=== PATIENT | female | born 1975 | race Caucasian/White ===

== ENCOUNTER → 2016-10-06 | Emergency (ER) | payer SELFPAY ==
[~2016-10-06] VITALS: Ht 175.3 cm; Wt 79.4 kg
[~2016-10-06] MED LIST: AMOXIL500 M1 PO; AZITHROMYCIN250 MG PO; CIPROFLOXACIN500 MG PO; DILAUDID2 MG PO; FLEXERIL10 MG PO; LUPRON DEPOT3.75 MG IM; MEDROL 4MG. DOSE4 MG PO; NAPROXEN SODIU500 MG PO; NOMEDS; PERCOCET 10 MG1 EACH PO; SEROQUEL XR150 MG PO; ZITHROMAX Z PA250 MG PO
--- NOTE | 2016-10-06 11:19 | Emergency Room Report ---
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 N Clinical Suspician of Infection? N Mental Status: 1 - Regular (Normal Baseline) Sepsis Risk:Low Sepsis Risk Have you (or family members/close friends) recently traveled outside the [place]? N If Yes, where/when: Have you had exposure to infectious disease within the past month? N TB? Other? 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 Has hx of chronic low back pain in the past. She last took Tylenol yesterday and did not take any medications today, but tolerates Ibuprofen. No fever or urinary sx. Pain is positional and radiates down both legs. Her pain is constant and localized, not colicky, not associated with abdominal pain, fever, cough, SOB, vomiting, or any blood from above or below. She ambulated easily to the ER stretcher per the RN who triaged her. No neurological sx and specifically,no loss of bowel or bladder function. ALLERGIES Coded Allergies: MDX - Aspirin (Aspirin) (Intermediate, I-HIVES 06/18/14) Converted from Generic Allergy: Aspirin MDX - Codeine (Codeine) (Intermediate, IHIVES 06/18/14) Converted from Ingredient Allergy: Codeine MDX - Penicillin (Penicillin) (Inter[facility], [facility] 06/18[facility]14) Converted from Drug Class Allergy: Penicillins MDX - Terbutaline (From Terbutaline Sulfate) (Intermediate, IHIVES 06/18/14) Converted from Generic Allergy: Terbutaline Sulfate History Medical History General Angina: Yes [place]: Yes Hypertension? No Hyperlipidemia? No CHF? No COPD? No Asthma? Yes Hernia? No CVA? No Seizures? No Diabetes? No UTI? Yes Stones? No GB Disease: No Hepatitis? No Cataracts? No Glaucoma? No MRSA? No TB? No Cancer? 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 Family History Family Hx Diabetes Yes CAD Yes Hypertension Yes Hyperlipidemia Yes Cancer Yes TB No Social History Smoking Hx Smoker: Current Every Day Smoker Tobacco: Yes Type Cigarettes Packs/day 1 1/2 - 2 Packs Alcohol Alcohol: No Review of Systems All Other Systems Reviewed and Negative Musculoskeletal see HPI Physical Exam Vital Signs Vital Signs Date Time Temp Pulse Resp B/P Pulse O2 O2 Flow FiO2 Ox Delivery Rate 10/06 1043 97.9 88 18 162/97 100 General Appearance normal appearance, WD/WN, no apparent distress Eye Exam - bilateral eye normal exam, bilateral eye PERRL, bilateral eye EOMI Neck normal inspection, non-tender, supple, full range of motion Respiratory Status Yes: trachea midline, chest symmetrical, non tender chest. No: respiratory distress, tender on palpation, use of accessory muscles, pain on inspiration, pain on expiration, productive cough, non productive cough. Lung Sounds bilateral: normal breath sounds, lungs clear. Cardiovascular normal exam, regular rate/rhythm, no peripheral edema, no gallop, no JVD, no murmur, no rub, JVD Gastrointestinal normal bowel sounds, normal exam, soft, no organomegaly, no pulsatile mass, no guarding, no rebound Back normal inspection, no CVA tenderness, no vertebral tenderness, bowel/ bladder continent, gait normal, muscle spasm (trigger point lower lumbar L), strt leg raising(L)-NML, strt leg raising(R)-NML Extremities non-tender, normal range of motion, normal inspection, normal capillary refill, no pedal edema Strength 5 Upper Ext (L), 5 Upper Ext (R), 5 Lower Ext (L), 5 Lower Ext (R) Neurologic alert, normal exam, no motor/sensory deficits, oriented x 3 Glascow Coma Scale Glascow Coma Scale Response Value EYE response: 4 Spontaneously 4 MOTOR response: 6 OBEYS 6 VERBAL response: 5 Oriented & Converses 5 Total 15 Reflexes Reflexes normal Yes DTR 3+ knee (R), 3+ knee (L) Skin intact, normal color, warm/dry, no rash cons.w/shingles Lymphatic no adenopathy Medical Decision Making LABS/Meds/Orders Pt receiving controlled substance in ED? No Results/Orders Current Medication Orders Sig/Markos Start time Last Medication Dose Route Stop Time Status Admin Ketorolac 60 MG ONCE ONE 10/06 1115 AC Tromethamine IM 10/06 1116 Ketorolac 0 .STK-MED ONE 10/06 1112 DC Tromethamine .ROUTE Departure Departure Time of Disposition 1113 Disposition DC Home or Self Care(routine) Clinical Impression Primary Impression: Musculoskeletal back pain Condition STABLE Patient Instructions DI for Low Back Pain Additional Instructions See doctor of choice on list provided, call for appointment, one to two weeks; Rx Naproxen, Rx Flexeril. Discharge Counseling Counseled pt/family regarding diagnosis, test results, medications/RX, home care, follow up needs Prescriptions Current Visit Scripts NAPROXEN (NAPROXEN 500MG TAB) 500 MG PO BIDP PRN spasm #10 TAB Cyclobenzaprine Hcl (Flexeril) 5 MG PO BID PRN spasm #6 TAB ED Critical Care Critical Care No at 1118
--- NOTE | 2016-10-06 11:19 | Emergency Room Report ---
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 N Clinical Suspician of Infection? N Mental Status: 1 - Regular (Normal Baseline) Sepsis Risk:Low Sepsis Risk Have you (or family members/close friends) recently traveled outside the [place]? N If Yes, where/when: Have you had exposure to infectious disease within the past month? N TB? Other? 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 Has hx of chronic low back pain in the past. She last took Tylenol yesterday and did not take any medications today, but tolerates Ibuprofen. No fever or urinary sx. Pain is positional and radiates down both legs. Her pain is constant and localized, not colicky, not associated with abdominal pain, fever, cough, SOB, vomiting, or any blood from above or below. She ambulated easily to the ER stretcher per the RN who triaged her. No neurological sx and specifically,no loss of bowel or bladder function. ALLERGIES Coded Allergies: MDX - Aspirin (Aspirin) (Intermediate, I-HIVES 06/18/14) Converted from Generic Allergy: Aspirin MDX - Codeine (Codeine) (Intermediate, I[facility]ES 06/18/14) Converted from Ingredient Allergy: Codeine MDX - Penicillin (Penicillin) ([facility], [facility] Converted from Drug Class Allergy: Penicillins MDX - Terbutaline (From Terbutaline Sulfate) (Intermediate, I[facility] 06/18/14) Converted from Generic Allergy: Terbutaline Sulfate History Medical History General Angina: Yes [place]: Yes Hypertension? No Hyperlipidemia? No CHF? No COPD? No Asthma? Yes Hernia? No CVA? No Seizures? No Diabetes? No UTI? Yes Stones? No GB Disease: No Hepatitis? No Cataracts? No Glaucoma? No MRSA? No TB? No Cancer? 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 Family History Family Hx Diabetes Yes CAD Yes Hypertension Yes Hyperlipidemia Yes Cancer Yes TB No Social History Smoking Hx Smoker: Current Every Day Smoker Tobacco: Yes Type Cigarettes Packs/day 1 1/2 - 2 Packs Alcohol Alcohol: No Review of Systems All Other Systems Reviewed and Negative Musculoskeletal see HPI Physical Exam Vital Signs Vital Signs Date Time Temp Pulse Resp B/P Pulse O2 O2 Flow FiO2 Ox Delivery Rate 10/06 1043 97.9 88 18 162/97 100 General Appearance normal appearance, WD/WN, no apparent distress Eye Exam - bilateral eye normal exam, bilateral eye PERRL, bilateral eye EOMI Neck normal inspection, non-tender, supple, full range of motion Respiratory Status Yes: trachea midline, chest symmetrical, non tender chest. No: respiratory distress, tender on palpation, use of accessory muscles, pain on inspiration, pain on expiration, productive cough, non productive cough. Lung Sounds bilateral: normal breath sounds, lungs clear. Cardiovascular normal exam, regular rate/rhythm, no peripheral edema, no gallop, no JVD, no murmur, no rub, JVD Gastrointestinal normal bowel sounds, normal exam, soft, no organomegaly, no pulsatile mass, no guarding, no rebound Back normal inspection, no CVA tenderness, no vertebral tenderness, bowel/ bladder continent, gait normal, muscle spasm (trigger point lower lumbar L), strt leg raising(L)-NML, strt leg raising(R)-NML Extremities non-tender, normal range of motion, normal inspection, normal capillary refill, no pedal edema Strength 5 Upper Ext (L), 5 Upper Ext (R), 5 Lower Ext (L), 5 Lower Ext (R) Neurologic alert, normal exam, no motor/sensory deficits, oriented x 3 Glascow Coma Scale Glascow Coma Scale Response Value EYE response: 4 Spontaneously 4 MOTOR response: 6 OBEYS 6 VERBAL response: 5 Oriented & Converses 5 Total 15 Reflexes Reflexes normal Yes DTR 3+ knee (R), 3+ knee (L) Skin intact, normal color, warm/dry, no rash cons.w/shingles Lymphatic no adenopathy Medical Decision Making LABS/Meds/Orders Pt receiving controlled substance in ED? No Results/Orders Current Medication Orders Sig/Markos Start time Last Medication Dose Route Stop Time Status Admin Ketorolac 60 MG ONCE ONE 10/06 1115 AC Tromethamine IM 10/06 1116 Ketorolac 0 .STK-MED ONE 10/06 1112 DC Tromethamine .ROUTE Departure Departure Time of Disposition 1113 Disposition DC Home or Self Care(routine) Clinical Impression Primary Impression: Musculoskeletal back pain Condition STABLE Patient Instructions DI for Low Back Pain Additional Instructions See doctor of choice on list provided, call for appointment, one to two weeks; Rx Naproxen, Rx Flexeril. Discharge Counseling Counseled pt/family regarding diagnosis, test results, medications/RX, home care, follow up needs Prescriptions Current Visit Scripts NAPROXEN (NAPROXEN 500MG TAB) 500 MG PO BIDP PRN spasm #10 TAB Cyclobenzaprine Hcl (Flexeril) 5 MG PO BID PRN spasm #6 TAB ED Critical Care Critical Care No at 1118
[2016-10-06 11:26] VITALS: BP 152/88
--- OUTSIDE RECORDS SUMMARY | 2016-10-06 12:01 | External Medical Summary Rpt ---
Author Author , CLARA Huber CLARA Address Unknown Phone [email or web address] Care Team Providers Care Bi Developer Name Role Phone A Juancarlos QIU MD PSC, A Unavailable Unavailable Juancarlos QIU MD PSC AYARAM, NIKITA, AYARAM, Unavailable Unavailable NIKITA [facility], [facility], Unavailable Unavailable [facility] GHAZAL DONOVAN, Unavailable Unavailable GHAZAL DONOVAN GHAZAL, SEBASTIAN, Unavailable Unavailable GHAZAL, SEBASTIAN [facility], Unavailable [facility]available [facility], Unavailable [facility]available [facility] CELIA RUSSELL, DREW, Unavailable Unavailable DREUX [facility] [place]available [place], [facility] [place] [facility] Un[facility] Un[place] [facility] MILTON SANTIAGO, Unavailable Unavailable MILTON SANTIAGO [facility] Unavailable Unavailable KYLEIGH SANCHEZ, Unavailable Unavailable KYLEIGH SANCHEZ MD, Unavailable Unavailable KASSANDRA KEENE MD Unavailable Unavailable EDE HARPEL DUANE, HARPEL Unavailable Unavailable DUANE HARPEL DUANE, HARPEL Unavailable Unavailable DUANE [facility] Un[facility] Un[facility], [facility] LORA ARINA, Unavailable Unavailable LORA ARINA GUIDO ARINA, Unavailable Unavailable GUIDO ARINA [facility] Unavailable Unavailable [facility], [facility] Unavailable Unavailable [facility], [facility] KILPELA JEA, KILPELA Unavailable Unavailable JEA [facility], Unavailable Unavailable [facility], Unavailable Unavailable [facility] TRINIDAD ISRAEL, TRINIDAD Unavailable Unavailable ISRAEL PAUL GRE, Unavailable Unavailable PAUL GRE [facility], Unavailable Unavailable [facility] Unavailable Unavailable SERVICES, [facility] PAUL SCHAEFFER, Unavailable Unavailable PAUL SCHAEFFER VIKA MAL, VIKA MAL Unavailable Unavailable [facility], Unavailable Unavailable [facility], Unavailable Unavailable [facility] Unavailable Unavailable LAB, [facility], Unavailable Unavailable [facility], Unavailable Unavailable [facility] MARCO ISRAEL, MARCO Unavailable Unavailable ISRAEL MARCO ISRAEL, MARCO Unavailable Unavailable ISRAEL [id number], Unavailable Unavailable [id number] SCHULSTAD SONY, Unavailable Unavailable [facility]UL[facility] SONY [facility], Unavailable Unavailable [facility] POP AVENDAÑO, POP Unavailable Unavailable KATERYNA WEHRMAN III ZEN, Unavailable Unavailable WEHRMAN III HERMES BARRAZA, Unavailable Unavailable HERMES ACEVEDO WRIGHT A Unavailable Unavailable Edgar QIU WRIGHT, Unavailable Unavailable Edgar Bauer Purpose Continuity of Care Document - 03-11-2007 through 2016 Problems Code Diagnosis DOS Provider Status 11774 HORDEOLUM 08-10-2014 Edgar QIU EXTERNUM PSC 6823 CELLULITIS 06-18-2014 [facility] ARM AND FOREARM 9134 ELB 06-18-2014 [facility] INSECT INC BITE NONVENOMOUS W/O INF 1110 PITYRIASIS 05-30-2014 Edgar QIU VERSICOЕКАТЕРИНА ACOSTA PSC 7242 LUMBAGO 05-30-2014 Edgar QIU MD PSC V154 PERS HX 04-09-2014 [facility] AL TRAUMA PRS [facility] 4660 ACUTE 12-28-2013 Edgar QIU BRONCHITIS PSC 7841 THROAT PAIN 12-28-2013 Edgar QIU MD PSC 6202 OTHER AND 11-18-2013 BELGICA Greene UNSPECIFIED TOYA ACOSTA OVARIAN CYST 6200 FOLLICULAR 11-11-2013 [place] [facility] 6259 UNSPEC 11-11-2013 [place] [facility] W/FEMALE GENITAL ORGANS 6173 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 V7231 ROUTINE 10-14-2013 HARPEL DUANE GYNECOLOGIC AL EXAMINATION 6268 OTH D/O 08-01-2011 MARCO ISRAEL MENSTRUATIO N&OTH ABN BLEED FE GNT TRACT 7862 COUGH 08-01-2011 [facility] 4919 UNSPECIFIED 07-31-2011 [facility] BRONCHITIS INC 6160 CERVICITIS 07-31-2011 PATHOLOGY & AND CYTOLOGY ENDOCERVICI LAB TIS 6170 ENDOMETRIOS 07-31-2011 PATHOLOGY & IS OF CYTOLOGY UTERUS LAB 6179 ENDOMETRIOS 07-31-2011 SCHULSTAD IS, SITE SONY UNSPECIFIED 54404 UNSPECIFIED 07-28-2011 HARPEL DUANE VAGINITIS AND VULVOVAGINI TIS 6262 EXCESSIVE 07-22-2011 [facility] MENSTRUATIO N 6159 UNSPECIFIED 06-30-2011 HARPEL DUANE INFLAMMATOR Y DISEASE OF UTERUS V7241 06-02-2011 HARPE[facility] DUANE EXAMINATION OR TEST NEGATIVE RESULT 6146 PELVIC 02-03-2011 HARPEL DUANE PERITONEAL ADHESIONS, FEMALE 7840 HEADACHE 01-25-2011 PAUL GRE 2180 SUBMUCOUS 11-08-2010 [facility] OF UTERUS GROUP PCC 6201 CORPUS 10-28-2010 [facility] CYST PHYSICIAN OR GROUP [facility] HEMATOMA V692 PROBLEMS 10-15-2010 [facility] HIGH-RISK SEXUAL BEHAVIOR 5258 OTHER SPEC 01-11-2010 [facility] DISORDERS ARINA TEETH&SUPPO RTING STRUCTURES 5264 INFLAMMATOR 01-11-2010 LORA Y ARINA CONDITIONS OF JAW 4659 ACUTE URIS 12-19-2009 Edgar ERAZO PSC UNSPECIFIED SITE 462 ACUTE 11-24-2009 [facility] 16150 OTHER 10-30-2009 [facility] FATIGUE 90358 LATERAL 02-19-2009 [facility] [place] [facility] IS OF [facility] V571 OTHER 02-07-2009 [facility] THERAPY INC 61130 PAIN IN 01-08-2009 SEBASTIAN C JOINT, GHAZAL UPPER ARM 6253 DYSMENORRHE 11-23-2008 A Juancarlos Hernández MD PSC 6264 IRREGULAR 11-23-2008 [facility] CYCLE INC 6266 METRORRHAGI 11-23-2008 A Juancarlos Hernández MD PSC V741 SCREENING 08-02-2008 A Juancarlos PANIAGUA MD PSC FOR PULMONARY TUBERCULOSI S 8472 LUMBAR 06-09-2008 [facility] 68460 GLUCOCORTIC 05-07-2008 [facility] DEFICIENC[facility] 56731 OTHER 05-07-2008 [facility] [place] [address] CHEST PAIN 05-07-2008 [facility] UNSPECIFIED [facility] 8820 OPEN WOUND 04-22-2008 [facility] HAND NO [facility] FINGER INC ALONE W/O MENTION COMP 8830 OPEN WOUND 04-22-2008 [facility] FINGER NATIONAL WITHOUT CORPORATION MENTION COMPLICATIO N 8771 INJURY 04-22-2008 [facility] OTHER AND NATIONAL UNSPECIFIED [employer] FINGER 90095 PAIN IN 04-18-2008 A Juancarlos SANCHEZ MD PSYCHIATRIC LOWER LEG 1330 SCABIES 12-01-2007 A Juancarlos QIU MD PSYCHIATRIC 33285 UNSPECIFIED 09-01-2007 [place] [facility] 98810 OTHER SIGN 03-23-2007 [facility] IN BREAST [facility] Medications Na ND Rx Da Fi Fi Am Da Di Ph RX Ph St me C No te ll ll ou ys ag ar # ys at rm s nt no ma ic us Or Da si cy ia de te s n re d SE 00 02 10 1 30 30 EA 21 MO Ac RO 31 -0 -[address] 14 SE ti QU 00 8- 1- 00 SI 41 S ve EL [address] 16 11 11 EP XR 0 PH HE AR N 15 MA A 0 CY MG OF TA BL CY ET NT HI AN A 00 09 09 0 20 5 EA 24 AMADO Ac 59 -2 -[address] 17 RP ti 10 0- 0- 00 SI 79 EL ve 34 20 20 DE 90 11 11 GE 1 PH RA AR LD MA R CY OF CY NT HI AN A 60 09 09 0 30 6 EA 24 AMADO Ac 95 -1 -[address] 06 RP ti 10 3- 3- 00 SI 43 EL ve 79 20 20 DE 77 11 11 GE 0 PH RA AR LD MA R CY OF CY NT HI AN A 60 09 09 0 30 7 EA 23 AMADO Ac 95 -0 -[address] 97 RP ti 10 6- 6- 00 SI 05 EL ve 79 20 20 DE 77 11 11 GE 0 PH RA AR LD MA R CY OF CY NT HI AN A 60 08 08 0 20 5 EA 23 AMADO Ac 95 -2 -[address] 76 RP ti 10 2- 2- 00 SI 49 EL ve 79 20 20 DE 77 11 11 GE 0 PH RA AR LD MA R CY OF CY NT HI AN A NA 53 08 08 2 60 30 EA 23 MO Ac AR 74 -0 -[address] 59 SE ti OX 60 9- 9- 00 SI 81 S ve EN [address] 01 11 11 EP 50 0 PH HE 0 AR N MG MA A CY TA BL OF ET CY NT HI AN A 00 08 08 0 30 15 EA 23 MO Ac 59 -0 -[address] 59 SE ti 10 9- 9- 00 SI 82 S ve [address] 90 11 11 EP 1 PH HE AR N MA A CY OF CY NT HI AN A RA 00 01 02 1 60 30 EA 20 MO Ac NI 78 -1 -[address] 74 SE ti TI 11 0- 1- 00 SI 12 S ve DI [address] NE 31 11 11 EP 0 PH HE 15 AR N 0 MA A MG CY TA OF BL ET CY NT HI AN A SE 00 02 02 1 30 30 EA 21 MO Ac RO 31 -0 -[address] 14 SE ti QU 00 8- 8- 00 SI 41 S ve EL [address] 16 11 11 EP XR 0 PH HE AR N 15 MA A 0 CY MG OF TA BL CY ET NT HI AN A PA 65 02 02 1 30 30 EA 21 MO Ac RO 86 -0 -[address] 14 SE ti XE 20 8- 8- 00 SI 42 S ve TI [address] NE 73 11 11 EP 0 PH HE HC AR N L MA A 40 CY MG OF TA CY BL NT ET HI AN A SE 00 01 01 1 30 30 EA 20 MO Ac RO 31 -1 -[address] 74 SE ti QU 00 0- 0- 00 SI 11 S ve EL [address] 06 11 11 EP XR 0 PH HE AR N 50 MA A CY MG OF TA BL CY ET NT HI AN A RA 53 01 01 1 60 30 EA 20 MO Ac NI 74 -1 -[address] 74 SE ti TI 60 0- 0- 00 SI 12 S ve DI [address] NE 30 11 11 EP 5 PH HE 15 AR N 0 MA A MG CY TA OF BL ET CY NT HI AN A PA 65 01 01 1 30 30 EA 20 MO Ac RO 86 -1 -[address] 74 SE ti XE 20 0- 0- 00 SI 13 S ve TI [address] NE 53 11 11 EP 0 PH HE HC AR N L MA A 20 CY MG OF TA CY BL NT ET HI AN A 00 11 11 0 15 3 EA 19 HE Ac 05 -1 -[address] 91 ND ti 44 0- 0- 00 SI 78 ER ve 65 20 20 DE SO 02 10 10 N 9 PH RO AR BE MA RT CY W OF CY NT HI AN A 00 11 11 0 15 3 EA 19 HE Ac 05 -1 -[address] 91 ND ti 44 0- 0- 00 SI 78 ER ve 65 20 20 DE SO 02 10 10 N 9 PH RO AR BE MA RT CY W OF CY NT HI AN A 00 11 11 0 20 4 EA 19 HE Ac 05 -0 -[address] 86 ND ti 44 5- 5- 00 SI 02 ER ve 65 20 20 DE SO 02 10 10 N 9 PH RO AR BE MA RT CY W OF CY NT HI AN A 00 11 11 0 20 4 EA 19 HE Ac 05 -0 -[address] 86 ND ti 44 5- 5- 00 SI 02 ER ve 65 20 20 DE SO 02 10 10 N 9 PH RO AR BE MA RT CY W OF CY NT HI AN A CY 00 10 10 0 45 15 EA 19 MO Ac CL 37 -1 -[address] 52 SE ti OB 80 3- 3- 00 SI 75 S ve EN [address] ZA 10 10 10 EP AR 1 PH HE IN AR N E MA A 5 CY MG OF TA BL CY ET NT HI AN A IB 53 10 10 0 90 30 EA 19 MO Ac UP 74 -1 -[address] 52 SE ti RO 60 3- 3- 00 SI 76 S ve FE [address] N 60 10 10 EP 80 5 PH HE 0 AR N MG MA A CY TA BL OF ET CY NT HI AN A TU 61 10 10 0 30 5 EA 19 MO Ac SS 57 -1 -[address] 52 SE ti IG 00 3- 3- 00 SI 77 S ve ON [address] 10 10 10 EP 5- 1 PH HE 1. AR N 5 MA A MG CY TA OF BL ET CY NT HI AN A SE 00 09 09 0 30 30 EA 19 MO Ac RO 31 -2 -[address] 29 SE ti QU 00 7- 7- 00 SI 86 S ve EL [address] 06 10 10 EP XR 0 PH HE AR N 50 MA A CY MG OF TA BL CY ET NT HI AN A 59 09 09 0 30 30 EA 19 MO Ac 76 -2 -[address] 29 SE ti 24 7- 7- 00 SI 87 S ve [address] 20 10 10 EP 5 PH HE AR N MA A CY OF CY NT HI AN A AZ 00 09 09 0 6. 5 EA 19 WE Ac IT 09 -1 -[address] 19 HR ti HR 37 8- 8- 0 SI 79 MA ve OM 14 20 20 DE N YC 61 10 10 II IN 8 PH I AR WI 25 MA LL 0 CY IA MG M OF E TA BL CY ET NT HI AN A CI 57 08 08 0 15 30 EA 18 MO Ac TA 66 -2 -[address] 83 SE ti LO 40 4- 4- 00 SI 10 S ve AR [address] AM 91 10 10 EP 8 PH HE HB AR N R MA A 40 CY MG OF TA CY BL NT ET HI AN A SE 00 08 08 0 30 30 EA 18 MO Ac RO 31 -2 -[address] 83 SE ti QU 00 4- 4- 00 SI 11 S ve EL [address] 06 10 10 EP XR 0 PH HE AR N 50 MA A CY MG OF TA BL CY ET NT HI AN A DI 00 12 12 00 60 30 EA 15 MO Ac CL 78 -2 -[address] 66 SE ti OF 11 1- 1- 00 SI 68 S ve EN [address] AC 90 09 09 EP 1 PH HE SO AR N D MA A EC CY 75 OF CY MG NT HI TA AN B A DI 00 11 12 00 60 30 EA 15 MO Ac CL 78 -2 -[address] 22 SE ti OF 11 0- 3- 00 SI 60 S ve EN [address] AC 90 09 09 EP 1 PH HE SO AR N D MA A EC CY 75 OF CY MG NT HI TA AN B A IN 00 10 11 00 30 10 EA 14 MO Ac DO 78 -2 -[address] 84 SE ti ME 12 6- 5- 00 SI 07 S ve TH [address] AC 00 09 09 EP IN 5 PH HE AR N 50 MA A CY MG OF CA CY PS NT UL HI E AN A 00 10 11 00 11 5 NO 74 FUNMILAYO Ac 14 -2 -0 .0 RT 92 HN ti 31 3- 5- 00 H 05 SO ve 47 20 20 PA N 31 09 09 RK CH [address] AR IN M A IN H C 00 10 11 00 6. 3 NO 74 FUNMILAYO Ac 59 -2 -0 00 RT 92 HN ti 10 3- 5- 0 H 03 SO ve 34 20 20 PA N 90 09 09 RK CH [address] AR IN M A IN H C TR 60 04 04 00 12 2 EA 12 DW Ac AM 50 -0 -[address] 19 YE ti AD 50 3- 9- 00 SI 60 R ve OL [address] 10 09 09 EU HC 8 PH X L AR 50 MA CY MG OF TA CY BL NT ET HI AN A NA 00 02 04 01 30 30 EA 11 MO Ac DO 78 -1 -[address] 41 SE ti LO 11 0- 9- 00 SI 72 S ve L [address] 20 10 09 09 EP 1 PH HE MG AR N MA A TA CY BL ET OF CY NT HI AN A PA 60 02 04 01 30 30 EA 11 MO Ac RO 50 -1 -[address] 41 SE ti XE 50 0- 9- 00 SI 71 S ve TI [address] NE 30 09 09 EP 1 PH HE HC AR N L MA A 20 CY MG OF CY TA NT BL HI ET AN A IB 53 12 04 01 60 20 EA 10 MO Ac UP 74 -0 -[address] 60 SE ti RO 60 9- 9- 00 SI 39 S ve FE [address] N 60 08 09 EP 80 5 PH HE 0 AR N MG MA A CY TA BL OF ET CY NT HI AN A CY 00 04 04 00 20 7 EA 12 DW Ac CL 59 -0 -[address] 19 YE ti OB 15 3- 9- 00 SI 61 R ve EN [address] ZA 80 09 09 EU AR 1 PH X IN AR E MA 10 CY MG OF CY TA NT BL HI ET AN A LO 00 02 02 00 60 15 EA 11 MO Ac RA 59 -1 -[address] 41 SE ti ZE 10 0- 6- 00 SI 73 S ve PA [address] M 00 09 09 EP 0. 5 PH HE 5 AR N MG MA A CY TA BL OF ET CY NT HI AN A PA 60 02 02 00 30 30 EA 11 MO Ac RO 50 -1 -[address] 41 SE ti XE 50 0- 6- 00 SI 71 S ve TI [address] NE 30 09 09 EP 1 PH HE HC AR N L MA A 20 CY MG OF CY TA NT BL HI ET AN A NA 00 02 02 00 60 30 EA 11 MO Ac AR 09 -1 -[address] 41 SE ti OX 30 0- 6- 00 SI 75 S ve EN [address] 90 09 09 EP 50 1 PH HE 0 AR N MG MA A CY TA BL OF ET CY NT HI AN A NA 00 02 02 00 30 30 EA 11 MO Ac DO 37 -1 -[address] 41 SE ti LO 80 0- 6- 00 SI 72 S ve L [address] 20 80 09 09 EP 1 PH HE MG AR N MA A TA CY BL ET OF CY NT HI AN A AZ 00 01 01 00 6. 5 EA 11 GA Ac IT 09 -2 -[address] 20 IN ti HR 37 3- 0- 0 SI 70 EY ve OM 14 20 20 DE YC 61 09 09 PR IN 8 PH CH AR AE 25 MA L 0 CY S MG OF TA CY BL NT ET HI AN A NA 00 12 01 00 30 30 EA 10 MO Ac DO 37 -2 -[address] 80 SE ti LO 80 3- 1- 00 SI 17 S ve L [address] 20 80 08 09 EP 1 PH HE MG AR N MA A TA CY BL ET OF CY NT HI AN A PA 60 12 01 00 30 30 EA 10 MO Ac RO 50 -2 -[address] 80 SE ti XE 50 3- 1- 00 SI 16 S ve TI [address] NE 30 08 09 EP 1 PH HE HC AR N L MA A 20 CY MG OF CY TA NT BL HI ET AN A IB 53 12 12 00 60 20 EA 10 MO Ac UP 74 -0 -[address] 60 SE ti RO 60 9- 8- 00 SI 39 S ve FE [address] N 60 08 08 EP 80 5 PH HE 0 AR N MG MA A CY TA BL OF ET CY NT HI AN A LO 00 12 12 00 30 15 EA 10 MO Ac RA 59 -0 -[address] 60 SE ti ZE 10 9- 8- 00 SI 36 S ve PA [address] M 00 08 08 EP 0. 5 PH HE 5 AR N MG MA A CY TA BL OF ET CY NT HI AN A PA 60 12 12 00 30 30 EA 10 MO Ac RO 50 -0 -[address] 60 SE ti XE 50 9- 8- 00 SI 37 S ve TI [address] NE 70 08 08 EP 1 PH HE HC AR N L MA A 10 CY MG OF CY TA NT BL HI ET AN A 00 12 12 00 21 10 EA 10 MO Ac 14 -0 -[address] 60 SE ti 31 9- 8- 00 SI 38 S ve [address] 70 08 08 EP 5 PH HE AR N MA A CY OF CY NT HI AN A PE 45 11 12 00 60 1 EA 10 RI Ac RM 80 -2 -[address] 42 SH ti ET 20 5- 4- 00 SI 54 ER ve HR 26 20 20 DE IN 93 08 08 RI 7 PH CH 5% AR AR MA D CR CY EA M OF CY NT HI AN A PE 45 09 11 01 60 1 EA 99 RI Ac RM 80 -2 -[address] 59 SH ti ET 20 4- 0- 00 SI 52 ER ve HR 26 20 20 DE IN 93 08 08 RI 7 PH CH 5% AR AR MA D CR CY EA M OF CY NT HI AN A HY 16 09 10 00 20 3 EA [address] 71 -2 -[address] 59 t ti OX 40 4- 9- 00 SI 53 Av ve YZ 08 20 20 DE ai IN 20 08 08 la E 4 PH bl HC AR e L MA 25 CY MG OF CY TA NT BL HI ET AN A PE 45 09 10 00 60 1 EA 99 No Ac RM 80 -2 -[address] 59 t ti ET 20 4- 9- 00 SI 52 Av ve HR 26 20 20 DE ai IN 93 08 08 la 7 PH bl 5% AR e MA CR CY EA M OF CY NT HI AN A 00 04 05 00 10 5 RI 72 No Ac 09 -0 -0 .0 TE 97 t ti 35 4- 8- 00 00 Av ve 50 20 20 AI ai 20 08 08 D la 1 PH bl AR e M #3 93 8 00 04 04 00 60 30 RI 72 No Ac 09 -0 -2 .0 TE 77 t ti 35 4- 4- 00 26 Av ve 50 20 20 AI ai 20 08 08 D la 1 PH bl AR e M #3 93 8 DE 51 04 04 00 30 30 RI 72 No Ac SO 67 -0 -1 .0 TE 75 t ti XI 21 4- 0- 00 82 Av ve ME 27 20 20 AI ai TA 10 08 08 D la SO 1 PH bl NE AR e M 0. #3 05 93 % 8 CR EA M 37 04 04 00 28 28 RI 72 No Ac 00 -0 -1 .0 TE 75 t ti 00 4- 0- 00 81 Av ve 05 20 20 AI ai 84 08 08 D la 5 PH bl AR e M #3 93 8 Procedures Procedure DOS Code Location Performer Comment IAADIADO 75[address] A Juancarlos SHERIFF STREPTOCO PSC CCUS GROUP A [address] [place] [facility] [place] [address] GHAZAL GHAZAL TRANSVAGI 4 DONOVAN DONOVAN NAL CULTURE 42514 [facility] HARPEL CHLAMYDIA 4 [facility]ANE DUANE ANY SOURCE URINLS 95567 [facility] HARPEL DIP 4 DUANE DUANE STICK/TAB LET REAGNT NON-AUTO MICRSCPY IADNA 75670 HAR[facility] HARPEL NEISSERIA 4 DUANE DUANE GONORRHOE AE DIRECT PROBE TQ HOSPITAL G0378 [facility] OBSERVATI 2 [facility] ON INC INC SERVICE [facility] G0378 [facility]OW[facility] OBSERVATI 2 [facility] ON INC INC SERVICE PER HOUR [facility] [address] [facility] 2 [facility] CARE/DAY 70 MINUTES PRESSURIZ 58440 [facility] BOWMAN ED/NONPRE 2 [facility] SSURIZED INC INC INHALATIO N TREATMENT SUSCEPTIB 55311 [facility] LTY STDY [facility] ANTIMICRB INC INC IAL MICRO/AGA R DILUTJ SMR PRIM 35838 [facility] SRC 2 [facility] GRAM/GIEM INC INC SA STAIN BCT FUNGI/KERON L BLOOD 55533 [facility] COUNT 2 [facility] COMPLETE INC INC AUTO&AUTO DIFRNTL WBC RADIOLOGI 89692 [place] GHAZAL C 2 MEDICAL DONOVAN EXAMINATI IMAGING ON CHEST ASS SINGLE VIEW FRONTAL CUL BACT 09184 [facility] XCPT 2 [facility] URINE INC INC BLOOD/STO OL AEROBIC ISOL CUL BACT 74307 [facility] B[facility] AEROBIC 2 [facility] ADDL INC INC METHS DEFINITIV E EA ISOL ANESTHESI 05140 [facility] POP A VAGINAL 2 ANESTH KATERYNA OF THE HYSTERECT BLUE TONY INCL BIOPSY VAGINAL 41391 BEAR SIFUENTES HYSTERECT 2 SONY SONY TONY UTERUS 250 GM/< PRESSURIZ 89261 [facility] BOW[facility] ED/NONPRE 2 [facility] SSURIZED INC INC INHALATIO N TREATMENT URNLS DIP 25687 [facility] BOWMAN 2 [facility] STICK/TAB INC INC LET REAGENT AUTO MICROSCOP Y BLOOD 43609 [facility] BOWMAN COUNT 2 [facility] MEM HOS[facility] HEMOGLOBI INC INC N BLOOD 65565 [facility] BOWMAN COUNT 2 MEM [facility] MEM [facility] [place] [address] PATHOLOGY TRINIDAD SURG 2 & [facility] CYTOLOGY LAB GROSS&ERIN ROSCOPIC EXAM NONINVASI 99545 GRACIE GRACIE VE 2 [facility] EAR/PULSE INC INC OXIMETRY [facility] G0378 [facility] BOWMAN OBSERVATI 2 [facility] ON INC INC SERVICE PER HOUR SMR PRIM 39576 [facility]PE[facility] HARPEL SRC WET 2 DUANE DUANE MOUNT NFCT AGT THERAPEUT 50688 HARPEL HARPEL IC 2 DUANE DUANE PROPHYLAC TIC/DX INJECTION SUBQ/IM URINE 24801 [facility] GRACIE 2 [facility] TEST INC INC VISUAL COLOR CMPRSN METHS URNLS DIP 51859 [facility] BOWMAN 2 [facility] STICK/TAB INC INC LET REAGENT AUTO MICROSCOP Y BLOOD 53141 [facility] BOWMAN COUNT 2 [facility] COMPLETE INC INC AUTO&AUTO DIFRNTL WBC HGB 56900 HARPEL HARPEL QUANTITAT 2 DUANE DUANE ORTIZ TRANSCUTA NEOUS THERAPEUT 24458 HARPEL HARPEL IC 2 DUANE DUANE PROPHYLAC TIC/DX INJECTION SUBQ/IM URINE 23036 HARPEL HARPEL 2 DUANE DUANE TEST VISUAL COLOR CMPRSN METHS URINE 41579 HARPEL HARPEL 2 DUANE DUANE TEST VISUAL COLOR CMPRSN METHS URINE 47298 HARPEL HARPEL 2 DUANE DUANE TEST VISUAL COLOR CMPRSN METHS VISUAL 46618 [facility] XM 1 GRE GRE UNI/BI W/INTERP EXTENDED EXAM ANESTHESI 41127 [facility] KASSANDRA A 1 ANESTH EDE INTRAPERI OF THE TONEAL BLUE LOWER ABD W/LAPS NOS BLOOD 21716 [facility] BOWMAN COUNT 1 [facility] MEM HOS[facility] HEMATOCRI INC INC T URNLS DIP 96531 [facility] BOWMAN 1 [facility] STICK/TAB INC INC LET REAGENT AUTO MICROSCOP Y BLOOD 17533 [facility] BOWMAN COUNT 1 [facility]OS[facility] HEMOGLOBI INC INC N LAPAROSCO 05347 [facility]OW[facility] PY 1 [facility] W/[place] [address] [facility] BOW[facility] INFUSION 1 [facility] THERAPY INC INC PROPHYLAX IS/DX EA HOUR EXCISION 7032 [facility] BOWMAN OR 1 [facility] DESTRUCTI INC INC ON OF LESION OF CUL-DE-SA C LAPAROSCP 6581 GRACIE BOWMAN IC LYSIS 1 [facility] ADHESIONS INC INC OVARY&FAL LOPIAN TUBE URINE 83762 [facility] BOWMAN 1 [facility] TEST INC INC VISUAL COLOR CMPRSN METHS BLOOD 08831 [facility] BOWMAN COUNT 1 [facility] COMPLETE INC INC AUTO&[place] [address] [facility] BOWMAN TRANSVAGI 1 [facility] NAL INC INC CYTP C/V 13418 BIO BIO AUTO THIN 1 REFERNCE 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 PREPJ SCR IES IES MNL RESCR PHYS IADNA 87039 BIO BIO NEISSERIA 1 REFERNCE REFERNCE LABORATOR LABORATOR GONORRHOE IES IES AE AMPLIFIED PROBE TQ IADNA NOS 46800 BIO BIO 1 REFERNCE REFERNCE AMPLIFIED LABORATOR LABORATOR PROBE TQ IES IES EACH ORGANISM IADNA 43342 BIO BIO CHLAMYDIA 1 REFERNCE REFERNCE LABORATOR LABORATOR TRACHOMAT [place]ES [place] [address] [facility]OW[facility] TRANSVAGI 1 [facility]OS[facility] NAL INC INC IADNA 26385 [facility] CHLAMYDIA 1 DIAGNOSTI DIAGNOSTI CS CS TRACHOMAT IS AMPLIFIED PROBE TQ IADNA 55012 [facility] NEISSERIA 1 DIAGNOSTI DIAGNOSTI CS CS GONORRHOE AE AMPLIFIED PROBE TQ ALVEOLOPL 10431 [facility] ASTY EACH 0 ARINA ARINA QUADRANT SPECIFY DEEP D9220 [facility] SEDATION/ 0 ARINA ARINA GENERAL ANESTHESI A-1ST 30 MINUTES ORTHOPANT 98049 [place] OGRAM 0 ARINA ARINA IADNA 23699 Edgar Hernández STREPTOCO 0 LAZARUS ACOSTA [place]US [place] [address] [facility] OF [facility] OF THYROID 0 [place] INC [place] INC STIMULATI NG HORMONE TSH APPLICATI 54913 GRACIE BOWMAN ON 9 [facility] MODALITY INC INC 1/> AREAS HOT/COLD PACKS APPL 75444 GRACIE BOWMAN MODALITY 9 [facility] 1/> AREAS INC INC ULTRASOUN D EA 15 MIN APPL 39152 GRACIE BOWMAN MODALITY 9 [facility] 1/> AREAS INC INC IONTOPHOR ESIS EA 15 MIN APPL 74075 GRACIE BOWMAN MODALITY 9 [facility] 1/> AREAS INC INC ELEC STIMJ UNATTENDE D THERAPEUT 63811 GRACIE BOWMAN IC PX 1/> 9 [facility] AREAS INC INC EACH 15 MIN EXERCISES ARTHROCEN 49067 ELYSE CASTELLANOS 9 [place] HERMES Bauer ASPIR&/IN ORTHOPAED J INTERM ICS PLC JT/BURS W/O US THERAPEUT 33873 GRACIE BOWMAN IC PX 1/> 9 [facility] AREAS INC INC EACH 15 MIN EXERCISES APPL 41382 GRACIE BOWMAN MODALITY 9 [facility] 1/> AREAS INC INC ELEC STIMJ UNATTENDE D APPL 32522 GRACIE BOWMAN MODALITY 9 [facility] 1/> AREAS INC INC IONTOPHOR ESIS EA 15 MIN APPL 86695 GRACIE BOWMAN MODALITY 9 [facility] 1/> AREAS INC INC ULTRASOUN D EA 15 MIN APPLICATI 70347 GRACIE BOWMAN ON 9 [facility] MODALITY INC INC 1/> AREAS HOT/COLD PACKS APPLICATI 33290 GRACIE BOWMAN ON 9 [facility] MODALITY INC INC 1/> AREAS HOT/COLD PACKS APPL 55817 GRACIE GARNERON MODALITY 9 [facility] 1/> AREAS INC INC ULTRASOUN D EA 15 MIN APPL 72770 GRACIE GARNERON MODALITY 9 [facility] 1/> AREAS INC INC ELEC STIMJ UNATTENDE D THERAPEUT 37919 GRACIE BOWMAN IC PX 1/> 9 [facility] AREAS INC INC EACH 15 MIN EXERCISES APPL 17929 GRACIE GARNERON MODALITY 9 [facility] 1/> AREAS INC INC IONTOPHOR ESIS EA 15 MIN APPL 12932 GRACIE BOWMAN MODALITY 9 [facility] 1/> AREAS INC INC IONTOPHOR ESIS EA 15 MIN THERAPEUT 74970 GRACIE BOWMAN IC PX 1/> 9 [facility] AREAS INC INC EACH 15 MIN EXERCISES APPL 35358 GRACIE GRACIE MODALITY 9 [facility] 1/> AREAS INC INC ELEC STIMJ UNATTENDE D APPL 15795 GRACIE BOWMAN MODALITY 9 [facility] 1/> AREAS INC INC ULTRASOUN D EA 15 MIN APPLICATI 23439 GRACIE BOWMAN ON 9 [facility] MODALITY INC INC 1/> AREAS H[place] [address] Jeff MICHELLET UPPER 9 GHAZAL SEBASTIAN EXTREMITY W/O CONTRAST MATRL RADEX 37410 [place] MAKSIM, ELBOW 9 MEDICAL PAUL P COMPLETE IMAGING MINIMUM 3 ASSOCIATE VIEWS S RADEX 20620 [facility] ELBOW 9 HORIZONS HORIZONS COMPLETE MED CTR MED CTR MINIMUM 3 VIEWS GONADOTRO 26998 Edgar LUTHER PIN 9 LAZARUS Bauer CHORIONIC PSC QUANTITAT ORTIZ US [id number] [facility] 9 MEDICAL SEBASTIAN NAL IMAGING ASSOCIATE S TB CELL 15364 Edgar LUTHER MEDIATED 9 LAZARUS Bauer ANTIGN PSC RESPNSE GAMMA INTERFERO N GROUND [id number] MIRELES MIRELES MILEAGE 9 [facility] EMS PER STATUTE MILE AMBULANCE [id number] [facility] SERVICE 9 [facility] EMS BLS EMERGENCY TRANSPORT CLOSURE 8659 GRACIE BOWMAN SKIN&SUBC 9 [facility] UTANEOUS INC INC TISSUE OTHER SITES SIMPLE 31875 KEITH DANIEL, REPAIR 9 NATIONAL KYLEIGH S SCALP/NEC CORPORATI K/AX/FLO ON T/TRUNK 2.5CM/< [place] [address] GRACIE BOWMAN STREPTOCO 9 [facility] CCUS INC INC GROUP A MAMMOGRAP 68592 [facility] 8 MEDICAL SEBASTIAN BILATERAL IMAGING ASSOCIATE S BREAST 19271 GRACIE BOWMAN REAL 8 [facility] TIME INC INC W/IMAGE DOCUMENTA TION MAMMOGRAP 73247 [facility] 8 MEDICAL SEBASTIAN UNILATERA IMAGING L ASSOCIATE S Encounters Encounter Start End Date Code Location Performer Type Date OFFICE 28793 A C KILPELA OUTPATIEN 5 5 LAZARUS SHERIFF T VISIT PSYCHIATRIC 15 MINUTES EMERGENCY 22458 GRACIE 5 5 [facility] DEPARTMEN INC T VISIT LIMITED/M INOR [facility] GRACIE - 5 5 [facility] OUTPATIEN INC T OFFICE 47663 A C FIELD AMB OUTPATIEN 5 5 LAZARUS ACOSTA T VISIT PSC 15 MINUTES OFFICE 37811 A C KILPELA OUTPATIEN 4 4 LAZARUS SHERIFF T VISIT PSC 15 MINUTES OFFICE 48343 [facility] OUTPATIEN 4 4 TOYA ZEPEDA T VISIT 10 MINUTES [facility]OSPITAL GRACIE - 4 4 [facility] OUTPATIEN INC T OFFICE 90655 TOYA ALBRECHTPEL OUTPATIEN 4 4 DUANE ZEPEDA T VISIT 15 MINUTES HOSPITAL GRACIE - 4 4 [facility] OUTPATIEN INC T PERIODIC 95782 TOYA ALBRECHTPEL PREVENTIV 4 4 DUANE ZEPEDA E MED EST PATIENT 18-39 YRS HOSPITAL GRACIE - 2 2 [facility] OUTPATIEN INC T OFFICE 70140 [facility] HAR[facility] OUTPATIEN 2 2 DUANE DUANE T VISIT 15 MINUTES HOSPITAL GRACIE - 2 2 [facility] OUTPATIEN INC T OFFICE 50205 [facility] OUTPATIEN 2 2 DUANE DUANE T VISIT 15 MINUTES OFFICE 91768 [facility] OUTPATIEN 2 2 DUANE DUANE T VISIT 5 MINUTES OFFICE 81339 [facility] OUTPATIEN 2 2 DUANE DUANE T VISIT 15 MINUTES OFFICE 79266 [facility]PEL OUTPATIEN 2 2 DUANE DUANE T VISIT 15 MINUTES OFFICE 25871 [facility] OUTPATIEN 2 2 DUANE DUANE T VISIT 15 MINUTES OFFICE 36940 [facility] OUTPATIEN 1 1 DUANE DUANE T VISIT 15 MINUTES OFFICE 76117 PAUL PAUL OUTPATIEN 1 1 GRE GRE T NEW 45 MINUTES OFFICE 51362 [facility] OUTPATIEN 1 1 PHYSICIAN DUANE T VISIT GROUP 15 PCC MINUTES HOSPITAL GRACIE - 1 1 [facility] OUTPATIEN INC T HOSPITAL GRACIE [facility] 1 1 [facility] OUTPATIEN INC T OFFICE 16912 [facility] OUTPATIEN 1 1 PHYSICIAN DUANE T VISIT GROUP 15 PCC MINUTES HOSPITAL GRACIE - 1 1 [facility] OUTPATIEN INC T OFFICE 29172 [facility] OUTPATIEN 1 1 PHYSICIAN DUANE T VISIT GROUP 15 PCC MINUTES OFFICE 10630 [facility] OUTPATIEN 1 1 PHYSICIAN DUANE T NEW 60 GROUP MINUTES [facility] GRACIE - 1 1 [facility] OUTPATIEN INC T OFFICE 59425 VIKA RESENDEZ OUTPATIEN 1 1 T VISIT 15 MINUTES OFFICE 93617 [facility] OUTPATIEN 0 0 ARINA ARINA T NEW 10 MINUTES OFFICE 93551 Edgar Hernández OUTPATIEN 0 0 LAZARUS ACOSTA T VISIT PSC 15 MINUTES EMERGENCY 25904 GRACIE 0 0 [facility] T VISIT LIMITED/M INOR PROB EMERGENCY 53284 PAUL GUADALUPE 0 0 EMERGENCY III [facility] T VISIT MODERATE SEVERITY [facility] GRACIE - 0 0 [facility] INC T OFFICE 23263 Edgar Hernández OUTPATIEN 0 0 LAZARUS ACOSTA T VISIT PSC 15 MINUTES OFFICE 98740 LIAM CASTELLANOS 9 9 SUNDEEP Bauer T VISIT ORTHOPAED 15 [facility] MINUTES [facility] GRACIE - 9 9 [facility]PATIEN INC T [facility]OSP[facility] GRACIE - 9 9 [facility] OUTPATIEN INC T OFFICE 26463 OXANA CASTELLANOS 9 9 SUNDEEP Bauer ION ORTHOPAED NEW/ESTAB [facility] PATIENT 60 MIN HOSPITAL GRACIE - 9 9 [facility] OUTPATIEN INC T OFFICE 85920 Edgar LUTHER OUTPATIMARIO ALBERTO 9 9 LAZARUS Bauer T VISIT PSC 15 MINUTES HOSPITAL NEW - 9 9 [facility] T EMERGENCY 74366 CHANTELL SANTIAGO, 9 9 [facility] MODERATE SEVERITY OFFICE 04027 Edgar LUTHER OUTPATIMARIO ALBERTO 9 9 LAZARUS Bauer T VISIT PSC 15 MINUTES HOSPITAL GRACIE - 9 9 [facility] INC T EMERGENCY 60440 PAUL RUSSELL, 9 9 EMERGENC[facility] T VISIT MODERATE ASSOCIATE SEVERITY S HOSPITAL GRACIE - 9 9 [facility] INC T EMERGENCY 89231 GRACIE 9 9 [facility] INC T VISIT LOW/MODER SEVERITY OFFICE 87364 Edgar LUTHER 9 9 LAZARUS Bauer T VISIT PSC 15 MINUTES HOSPITAL GRACIE - 9 9 [facility] INC T EMERGENCY 44051 GRACIE 9 9 [facility] T VISIT MODERATE SEVERITY EMERGENCY 83088 INNA SANCHEZ, 9 9 [facility] T VISIT ON HIGH/URGE NT SEVERITY OFFICE 71912 Edgar LUTHER 8 8 LAZARUS Bauer T VISIT PSC 15 MINUTES HOSPITAL GRACIE - 8 8 [facility]PATIEN INC [facility] GRACIE - 8 8 [facility] OUTPATI[facility] INC T EMERGENCY 85284 GRACIE ASHRAF, 8 8 [facility] T VISIT PROF SERV LOW/MODER SEVERITY [facility]OSPITAL GRACIE - 8 8 [facility] INC T OFFICE 72210 Edgar LUTHER 8 8 LAZARUS Bauer T VISIT PSC 10 MINUTES
--- OUTSIDE RECORDS SUMMARY | 2016-10-06 12:01 | External Medical Summary Rpt ---
Author Author , CLARA Huber CLARA Address Unknown Phone [email or web address] Care Team Providers Care Property Technician Name Role Phone A Juancarlos QIU MD [facility], A Unavailable Unavailable Juancarlos QIU MD PSC AYARAM, NIKITA, AYARAM, Unavailable Unavailable NIKITA [facility] Unavailable Unavailable [facility], [facility], Unavailable Unavailable [facility] GHAZAL DONOVAN, Unavailable Unavailable GHAZAL DONOVAN GHAZAL, SEBASTIAN, Unavailable Unavailable GHAZAL, SEBASTIAN [facility] Unavailable [facility]available [facility], Unavailable [facility]available [facility] CELIA RUSSELL, DREW, Unavailable Unavailable DREUX [facility] [place]available [place]available [place], [facility] [place] [facility] [place] Un[place] [facility] [place] MILTON SANTIAGO, Unavailable Unavailable [...] ARINA GUIDO ARINA, Unavailable Unavailable GUIDO ARINA [facility] Unavailable Unavailable [facility] Unavailable Unavailable [facility], [facility] KILPELA JEA, KILPELA Unavailable Unavailable JEA [facility], Unavailable Unavailable [facility], Unavailable Unavailable [facility]IN[facility] ISRAEL, [facility] Unavailable Unavailable [facility]RA[facility] PAUL GRE, Unavailable Unavailable PAUL GRE PAUL [facility], Unavailable Unavailable [facility] Unavailable Unavailable SERVICES, [facility] PAUL SCHAEFFER, Unavailable Unavailable PAUL [...] 2016 Problems Code Diagnosis DOS Provider Status 61045 HORDEOLUM 08-10-2014 Edgar QIU EXTERNUM PSC 6823 [...] TOYA ACOSTA OVARIAN CYST 6200 FOLLICULAR 11-11-2013 [facility] 6259 UNSPEC 11-11-2013 [facility] W/FEMALE GENITAL ORGANS 6173 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 V7231 ROUTINE 10-14-2013 [facility] GYNECOLOGIC AL EXAMINATION 6268 OTH D/O 08-01-2011 MARCO ISRAEL MENSTRUATIO N&OTH ABN BLEED FE GNT TRACT 7862 COUGH 08-01-2011 [facility] 4919 UNSPECIFIED 07-31-2011 [facility] BRONCHITIS INC 6160 CERVICITIS 07-31-2011 PATHOLOGY & AND CYTOLOGY ENDOCERVICI LAB TIS 6170 ENDOMETRIOS 07-31-2011 PATHOLOGY & IS OF CYTOLOGY UTERUS LAB 6179 ENDOMETRIOS 07-31-2011 SCHULSTAD IS, SITE SONY UNSPECIFIED 22405 UNSPECIFIED 07-28-2011 [facility] VAGINITIS AND VULVOVAGINI TIS 6262 EXCESSIVE 07-22-2011 [facility] OR FREQUENT [facility] INC MENSTRUATIO N 6159 UNSPECIFIED 06-30-2011 [facility] INFLAMMATOR Y DISEASE OF UTERUS V7241 06-02-2011 [facility] EXAMINATION OR TEST NEGATIVE RESULT 6146 PELVIC 02-03-2011 [facility] PERITONEAL ADHESIONS, FEMALE 7840 HEADACHE 01-25-2011 PAUL GRE 2180 SUBMUCOUS 11-08-2010 [facility] PHYSICIAN OF UTERUS GROUP PCC 6201 CORPUS 10-28-2010 [facility] LUTEUM CYST PHYSICIAN OR GROUP [facility] HEMATOMA V692 PROBLEMS 10-15-2010 [facility]AGNOST[facility] HIGH-RISK SEXUAL BEHAVIOR 5258 OTHER SPEC 01-11-2010 [facility] DISORDERS ARINA TEETH&SUPPO RTING STRUCTURES 5264 INFLAMMATOR 01-11-2010 [facility] Y ARINA CONDITIONS OF JAW 4659 ACUTE URIS 12-19-2009 Edgar ERAZO PSC UNSPECIFIED SITE 462 ACUTE 11-24-2009 [facility] 91008 OTHER 10-30-2009 [facility] FATIGUE 64030 LATERAL 02-19-2009 [facility] [place] EPICONDYLIT ORTHOPAEDIC IS OF [place] S PLC V571 OTHER 02-07-2009 [facility] PH[facility]ICAL [facility] THERAPY INC 48553 PAIN IN 01-08-2009 SEBASTIAN C JOINT, GHAZAL UPPER ARM 6253 DYSMENORRHE 11-23-2008 A Juancarlos Hernández MD PSC 6264 IRREGULAR 11-23-2008 [facility] MENSTRUAL [facility] CYCLE INC 6266 METRORRHAGI 11-23-2008 A Juancarlos Hernández MD PSC V741 SCREENING 08-02-2008 A Juancarlos PANIAGUA MD [facility]SC FOR PULMONARY TUBERCULOSI S 8472 LUMBAR 06-09-2008 [facility] 68800 GLUCOCORTIC 05-07-2008 [facility] DEFICIENCY 64830 OTHER 05-07-2008 [place] [place] [address] CHEST PAIN 05-07-2008 [facility] UNSPECIFIED [facility] 8820 OPEN WOUND 04-22-2008 [facility] HAND NO [facility] FINGER INC ALONE W/O MENTION COMP 8830 OPEN WOUND 04-22-2008 KE[facility] FINGER NATIONAL WITHOUT CORPORATION MENTION COMPLICATIO N 7276 INJURY 04-22-2008 KEITH OTHER AND NATIONAL UNSPECIFIED Nitric Bio FINGER 72469 PAIN IN 04-18-2008 A Juancarlos SANCHEZ MD [facility] LOWER LEG 1330 SCABIES 12-01-2007 A Juancarlos QIU MD [facility] 47967 UNSPECIFIED 09-01-2007 [facility] 28339 OTHER SIGN 03-23-2007 [facility] AND SYMPTOM MEM [...] 2 60 30 EA 23 MO Ac PA 74 -0 -[address] SE [...] DE ST ZA 10 10 10 EP PA 1 PH HE IN AR N E [...] 4- 4- 00 SI 10 S ve PA [address] AM 91 [...] DE DR ZA 80 09 09 EU PA 1 PH X IN AR E MA [...] 00 60 30 EA 11 MO Ac PA 09 -1 -[address] 41 SE [...] 20 20 DE YC 61 09 09 NJ IN 8 PH CH AR AE 25 [...] Procedure DOS Code Location Performer Comment IAADIADO 64244 A Juancarlos SHERIFF STREPTOCO PSC CCUS GROUP A [address] [facility] G[facility]AL TRANSVAGI 4 [place] [address] GHAZAL GHAZAL TRANSVAGI 4 DNOOVAN DONOVAN NAL CULTURE 98969 [facility] HARPEL CHLAMYDIA 4 [facility]ANE DUANE ANY SOURCE URINLS 08508 [facility] DIP 4 [facility]ANE [facility]ANE STICK/TAB LET REAGNT NON-AUTO MICRSCPY IADNA 00487 [facility] NEISSERIA 4 DUANE DUANE GONORRHOE AE DIRECT PROBE TQ HOSPITAL G0378 [facility] BOWMAN OBSERVATI 2 [facility] ON INC INC SERVICE PER HOUR [facility] G0378 [facility]OW[facility] OBSERVATI 2 [facility] ON INC INC SERVICE PER HOUR [facility] [address] [facility] 2 [facility] CARE/DAY 70 MINUTES PRESSURIZ 84401 [facility] BOWMAN ED/NONPRE 2 [facility] SSURIZED INC INC INHALATIO N TREATMENT SUSCEPTIB 48387 [facility] BOWMAN LTY STDY 2 [facility] ANTIMICRB INC INC IAL MICRO/AGA R DILUTJ SMR PRIM 53161 [facility] BOWMAN SRC 2 [facility] GRAM/GIEM INC INC SA STAIN BCT FUNGI/KREON L BLOOD 40679 [facility] BOWMAN COUNT 2 [facility] COMPLETE INC INC AUTO&AUTO DIFRNTL WBC RADIOLOGI 76385 [facility] GHAZAL C 2 MEDICAL DONOVAN EXAMINATI IMAGING ON CHEST ASS SINGLE VIEW FRONTAL CUL BACT 89154 [facility] BOWMAN XCPT 2 [facility] URINE INC INC BLOOD/STO OL AEROBIC ISOL CUL BACT 62212 [facility] BOWMAN AEROBIC 2 [facility] ADDL INC INC METHS DEFINITIV E EA ISOL ANESTHESI 75629 [facility] POP A VAGINAL 2 ANESTH KATERYNA OF THE HYSTERECT BLUE TONY INCL BIOPSY VAGINAL 49676 BEAR SIFUENTES HYSTERECT 2 SONY SONY TONY UTERUS 250 GM/< PRESSURIZ 23114 [facility] BOWMAN ED/NONPRE 2 [facility] SSURIZED INC INC INHALATIO N TREATMENT URNLS DIP 51462 [facility] BOWMAN 2 [facility] STICK/TAB INC INC LET REAGENT AUTO MICROSCOP Y BLOOD 06624 [facility] BOWMAN COUNT 2 [facility] HEMOGLOBI INC INC N BLOOD 10002 [facility] BOWMAN COUNT 2 [facility] [address] PATHOLOGY TRINIDAD SURG 2 & ISRAEL PATHOLOGY CYTOLOGY LAB GROSS&ERIN ROSCOPIC EXAM NONINVASI 87039 GRACIE GRACIE VE 2 [facility] EAR/PULSE INC INC OXIMETRY [facility] G0378 [facility] BOWMAN OBSERVATI 2 [facility] ON INC INC SERVICE PER HOUR SMR PRIM 35427 [facility] HARPEL SRC WET 2 DUANE DUANE MOUNT NFCT AGT THERAPEUT 65169 HARPEL HARPEL IC 2 DUANE DUANE PROPHYLAC TIC/DX INJECTION SUBQ/IM URINE 92214 GR[facility]IE GRACIE 2 [facility] TEST INC INC VISUAL COLOR CMPRSN METHS URNLS DIP 58986 [facility] BOWMAN 2 [facility] STICK/TAB INC INC LET REAGENT AUTO MICROSCOP Y BLOOD 09294 [facility] BOWMAN COUNT 2 [facility] COMPLETE INC INC AUTO&AUTO DIFRNTL WBC HGB 15995 [facility] HARPEL QUANTITAT 2 DUANE DUANE ORTIZ TRANSCUTA NEOUS THERAPEUT 13946 HARPEL HARPEL IC 2 DUANE DUANE PROPHYLAC TIC/DX INJECTION SUBQ/IM URINE 44580 HARPEL HARPEL 2 DUAEN DUANE TEST VISUAL COLOR CMPRSN METHS URINE 97687 HARPEL HARPEL 2 DUANE DUANE TEST VISUAL COLOR CMPRSN METHS URINE 72495 HARPEL HARPEL 2 DUANE DUANE TEST VISUAL COLOR CMPRSN METHS VISUAL 80208 [facility] XM 1 GRE GRE UNI/BI W/INTERP EXTENDED EXAM ANESTHESI 34969 [facility] KASSANDRA A 1 ANESTH EDE INTRAPERI OF THE TONEAL BLUE LOWER ABD W/LAPS NOS BLOOD 22215 [facility] BOWMAN COUNT 1 [facility] HEMATOCRI INC INC T URNLS DIP 04942 [facility] BOWMAN 1 [facility] STICK/TAB INC INC LET REAGENT AUTO MICROSCOP Y BLOOD 47610 [facility]OWMAN COUNT 1 [facility] HEMOGLOBI INC INC N LAPAROSCO 93405 [facility] BOW[facility] PY 1 [facility] W/[place] [address] [facility] INFUSION 1 [facility] THERAPY INC INC PROPHYLAX IS/DX EA HOUR EXCISION 7032 [facility] BOWMAN OR 1 [facility] DESTRUCTI INC INC ON OF LESION OF CUL-DE-SA C LAPAROSCP 6581 [facility] BOWMAN IC LYSIS 1 [facility] ADHESIONS INC INC OVARY&FAL LOPIAN TUBE URINE 81241 [facility] BOWMAN 1 [facility] TEST INC INC VISUAL COLOR CMPRSN METHS BLOOD 76294 [facility] BOWMAN COUNT 1 [facility] COMPLETE INC INC AUTO&[place] [address] [facility]OWMAN TRANSVAGI 1 [facility] NAL INC INC CYTP C/V 67176 BIO BIO AUTO THIN 1 REFERNCE 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 LABORATOR LABORATOR PREPJ SCR IES IES MNL RESCR PHYS IADNA 28756 BIO BIO NEISSERIA 1 REFERNCE REFERNCE LABORATOR LABORATOR GONORRHOE IES IES AE AMPLIFIED PROBE TQ IADNA NOS 32885 BIO BIO 1 REFERNCE REFERNCE AMPLIFIED LABORATOR LABORATOR PROBE TQ IES IES EACH ORGANISM IADNA 80211 BIO BIO CHLAMYDIA 1 REFERNCE REFERNCE LABORATOR LABORATOR TRACHOMAT [place] [address] [facility] B[facility] TRANSVAGI 1 [facility] NAL INC INC IADNA 57938 [facility] CHLAMYDIA 1 DIAGNOSTI DIAGNOSTI CS CS TRACHOMAT IS AMPLIFIED PROBE TQ IADNA 31682 [facility] NEISSERIA 1 DIAGNOSTI DIAGNOSTI CS CS GONORRHOE AE AMPLIFIED PROBE TQ ALVEOLOPL 42668 [facility] ASTY EACH 0 ARINA ARINA QUADRANT SPECIFY DEEP D9220 [facility] SEDATION/ 0 ARINA ARINA GENERAL ANESTHESI A-1ST 30 MINUTES ORTHOPANT 03148 [facility] OGRAM 0 ARINA ARINA IADNA 50359 Edgar Hernández STREPTOCO 0 LAZARUS ACOSTA CCUS [place] [address] [facility] THY[facility]ID 0 [place] [facility] [place] INC STIMULATI NG HORMONE TSH APPLICATI 50873 [facility] B[facility] ON 9 [facility] MODALITY INC INC 1/> AREAS HOT/COLD PACKS APPL 34575 [facility] BOWMAN MODALITY 9 [facility] 1/> AREAS INC INC ULTRASOUN D EA 15 MIN APPL 43015 [facility] BOWMAN MODALITY 9 [facility] 1/> AREAS INC INC IONTOPHOR ESIS EA 15 MIN APPL 57127 [facility]OWMAN MODALITY 9 [facility] 1/> AREAS INC INC ELEC STIMJ UNATTENDE D THERAPEUT 38372 [facility] BOWMAN IC PX 1/> 9 [facility] AREAS INC INC EACH 15 MIN EXERCISES ARTHROCEN 51293 ELYSE CASTELLANOS 9 [place] HERMES Bauer ASPIR&/IN ORTHOPAED J INTERM ICS PLC JT/BURS W/O US THERAPEUT 84683 GR[facility] BOWMAN IC PX 1/> 9 [facility] AREAS INC INC EACH 15 MIN EXERCISES APPL 30962 [facility] BOWMAN MODALITY 9 [facility] 1/> AREAS INC INC ELEC STIMJ UNATTENDE D APPL 86770 [facility] BOWMAN MODALITY 9 [facility] 1/> AREAS INC INC IONTOPHOR ESIS EA 15 MIN APPL 07889 [facility] BOWMAN MODALITY 9 [facility] 1/> AREAS INC INC ULTRASOUN D EA 15 MIN APPLICATI 91590 [facility] BOWMAN ON 9 [facility] MODALITY INC INC 1/> AREAS HOT/COLD PACKS APPLICATI 38198 [facility] BOWMAN ON 9 [facility] MODALITY INC INC 1/> AREAS HOT/COLD PACKS APPL 20952 GRACIE GARNERON MODALITY 9 [facility] 1/> AREAS INC INC ULTRASOUN D EA 15 MIN APPL 71570 GRACIE GARNERON MODALITY 9 [facility] 1/> AREAS INC INC ELEC STIMJ UNATTENDE D THERAPEUT 40152 GRACIE BOWMAN IC PX 1/> 9 [facility] AREAS INC INC EACH 15 MIN EXERCISES APPL 27828 GRACIE GARNERON MODALITY 9 [facility] 1/> AREAS INC INC IONTOPHOR ESIS EA 15 MIN APPL 18165 [facility] BOWMAN MODALITY 9 [facility] 1/> AREAS INC INC IONTOPHOR ESIS EA 15 MIN THERAPEUT 50401 GRACIE BOWMAN IC PX 1/> 9 [facility] AREAS INC INC EACH 15 MIN EXERCISES APPL 20343 GRACIE GRACIE MODALITY 9 [facility] 1/> AREAS INC INC ELEC STIMJ UNATTENDE D APPL 96702 GRACIE BOWMAN MODALITY 9 [facility] 1/> AREAS INC INC ULTRASOUN D EA 15 MIN APPLICATI 36982 GRACIE BOWMAN ON 9 [facility] MODALITY INC INC 1/> AREAS HOT/COLD PACKS [place] ANY 77379 Jeff MICHELLET UPPER 9 GHAZAL SEBASTIAN EXTREMITY W/O CONTRAST MATRL RADEX 54691 [facility] MAKSIM, EL[place]OW 9 MEDICAL PAUL P COMPLETE IMAGING MINIMUM 3 ASSOCIATE VIEWS S RADEX 53210 [facility] ELBOW 9 HORIZONS HORIZONS COMPLETE MED CTR MED CTR MINIMUM 3 VIEWS GONADOTRO 52720 Edgar LUTHER PIN 9 LAZARUS [place] [address] [facility] TRANSVAGI 9 MEDICAL SEBASTIAN NAL IMAGING ASSOCIATE S TB CELL 25419 Edgar LUTHER MEDIATED 9 LAZARUS Bauer ANTIGN PSC RESPNSE GAMMA INTERFERO N GROUND A0425 [facility] MIRELES MILEAGE 9 [facility] EMS CO EMS PER STATUTE MILE AMBULANCE A0429 [facility] SERVICE 9 CO EMS CO EMS BLS EMERGENCY TRANSPORT CLOSURE 8659 [facility] BOWMAN SKIN&SUBC 9 [facility] UTANEOUS INC INC TISSUE OTHER SITES SIMPLE 20736 KEITH DANIEL, REPAIR 9 NATIONAL KYLEIGH S SCALP/NEC CORPORATI K/AX/FLO ON T/TRUNK 2.5CM/< [place] [address] GR[facility] BOWMAN STREPTOCO 9 [facility] CCUS INC INC GROUP A MAMMOGRAP 91712 [facility] 8 MEDICAL SEBASTIAN BILATERAL IMAGING ASSOCIATE S BREAST 71839 [facility] BOWMAN REAL 8 [facility] TIME INC INC W/IMAGE DOCUMENTA TION MAMMOGRAP 54497 [facility] 8 MEDICAL SEBASTIAN UNILATERA IMAGING L ASSOCIATE S Encounters Encounter Start End Date Code Location Performer Type Date OFFICE 91805 A C KILPELA OUTPATIEN 5 5 LAZARUS SHERIFF T VISIT [facility] 15 MINUTES EMERGENCY 91790 GRACIE 5 5 [facility] DEPARTMEN INC T VISIT LIMITED/M INOR [facility] GRACIE - 5 5 [facility] OUTPATIEN INC T OFFICE 89553 A C FIELD AMB OUTPATIEN 5 5 LAZARUS ACOSTA T VISIT PSC 15 MINUTES OFFICE 31232 A C KILPELA OUTPATIEN 4 4 LAZARUS SHERIFF T VISIT PSC 15 MINUTES OFFICE 06803 [facility] OUT[facility]IEN 4 4 [facility] ZEPEDA T VISIT 10 MINUTES HOSPITAL GRACIE - 4 4 [facility] OUTPATIEN INC T OFFICE 80467 TO[facility] ALBRECHTPEL OUTPATIEN 4 4 DUANE ZEPEDA T VISIT 15 MINUTES HOSPITAL GRACIE - 4 4 [facility] OUTPATIEN INC T PERIODIC 36167 TOYA ALBRECHTPEL PREVENTIV 4 4 DUANE ZEPEDA E MED EST PATIENT 18-39 YRS HOSPITAL GRACIE - 2 2 [facility] OUTPATIEN INC T OFFICE 56306 [facility] HARPEL OUTPATIEN 2 2 DUANE DUANE T VISIT 15 MINUTES HOSPITAL GRACIE - 2 2 [facility] OUTPATIEN INC T OFFICE 57051 [facility] HARPEL OUTPATIEN 2 2 DUANE DUANE T VISIT 15 MINUTES OFFICE 23848 [facility] HARPEL OUTPATIEN 2 2 DUANE DUANE T VISIT 5 MINUTES OFFICE 98760 [facility] HARPEL OUTPATIEN 2 2 DUANE DUANE T VISIT 15 MINUTES OFFICE 77919 HARPEL HARPEL OUTPATIEN 2 2 DUANE DUANE T VISIT 15 MINUTES OFFICE 82342 HARPEL HARPEL OUTPATIEN 2 2 DUANE DUANE T VISIT 15 MINUTES OFFICE 37604 [facility] HARPEL OUTPATIEN 1 1 DUANE DUANE T VISIT 15 MINUTES OFFICE 99738 PAUL PAUL OUTPATIEN 1 1 GRE GRE T NEW 45 MINUTES OFFICE 33445 [facility] HARPEL OUTPATIEN 1 1 PHYSICIAN DUANE T VISIT GROUP 15 PCC MINUTES HOSPITAL GRACIE - 1 1 [facility] OUTPATIEN INC T HOSPITAL GRACIE - 1 1 [facility] OUTPATIEN INC T OFFICE 96311 [facility] HARPEL OUTPATIEN 1 1 PHYSICIAN DUANE T VISIT GROUP 15 PCC MINUTES HOSPITAL GRACIE - 1 1 [facility] OUTPATIEN INC T OFFICE 53570 [facility] HARPEL OUTPATIEN 1 1 PHYSICIAN DUANE T VISIT GROUP 15 PCC MINUTES OFFICE 84526 [facility] HARPEL OUTPATIEN 1 1 PHYSICIAN DUANE T NEW 60 GROUP MINUTES [facility] HOSPITAL GRACIE - 1 1 [facility] OUTPATIEN INC T OFFICE 19862 VIKA RESENDEZ OUTPATIEN 1 1 T VISIT 15 MINUTES OFFICE 76677 [facility] OUTPATIEN 0 0 ARINA ARINA T NEW 10 MINUTES OFFICE 19270 Edgar Hernández OUTPATIEN 0 0 LAZARUS ACOSTA T VISIT PSC 15 MINUTES EMERGENCY 62645 GRACIE 0 0 [facility] T VISIT LIMITED/M INOR PROB EMERGENCY 46067 PAUL GUADALUPE 0 0 EMERGENCY III [facility] SERVICES T VISIT MODERATE SEVERITY HOSPITAL GRACIE - 0 0 [facility] OUTPATIEN INC T OFFICE 75871 Edgar Hernández OUTPATIEN 0 0 LAZARUS ACOSTA T VISIT PSC 15 MINUTES OFFICE 68281 LIAM CASTELLANOS 9 9 SUNDEEP Bauer T VISIT ORTHOPAED 15 [facility] MINUTES HOSPITAL GRACIE - 9 9 [facility] OUTPATIEN INC T HOSPITAL GRACIE - 9 9 [facility] OUTPATIEN INC T OFFICE 05023 OXANA CASTELLANOS 9 9 SUNDEEP Bauer ION ORTHOPAED NEW/ESTAB ICS PLC PATIENT 60 MIN HOSPITAL GRACIE - 9 9 [facility] OUTPATIEN INC T OFFICE 99168 Edgar LUTHER OUTPATIMARIO ALBERTO 9 9 LAZARUS Bauer T VISIT PSC 15 MINUTES HOSPITAL NEW - 9 9 [facility]ORIZONS OUTPATIEN MED [facility] T EMERGENCY 08448 CHANTELL SANTIAGO, 9 9 [facility] T VISIT [place] [facility] MODERATE SEVERITY OFFICE 60654 Edgar LUTHER OUTPATIMARIO ALBERTO 9 9 LAZARUS Bauer T VISIT PSC 15 MINUTES HOSPITAL GRACIE - 9 9 [facility] OUTPATIEN INC T EMERGENCY 71227 PAUL RUSSELL, 9 9 [facility] DEPART[facility] SERVICES T VISIT MODERATE ASSOCIATE SEVERITY S HOSPITAL GRACIE - 9 9 [facility] OUTPATIEN INC T EMERGENCY 67149 GRACIE 9 9 [facility] INC T VISIT LOW/MODER SEVERITY OFFICE 49332 Edgar LUTHER 9 9 LAZARUS Bauer T VISIT PSC 15 MINUTES HOSPITAL GRACIE - 9 9 [facility] OUTPATIEN INC T EMERGENCY 43455 GRACIE 9 9 [facility] T VISIT MODERATE SEVERITY EMERGENCY 41940 INNA SANCHEZ, 9 9 [facility] T VISIT ON HIGH/URGE NT SEVERITY OFFICE 07805 Edgar LUTHER 8 8 LAZARUS Bauer T VISIT PSC 15 MINUTES HOSPITAL GRACIE - 8 8 [facility] OUTPATIEN INC HOSPITAL GRACIE - 8 8 [facility] OUTPATIEN INC T EMERGENCY 20884 GRACIE ASHRAF, 8 8 [facility] T VISIT PROF SERV LOW/MODER SEVERITY HOSPITAL GRACIE - 8 8 [facility] OUTPATIEN INC T OFFICE 95656 Edgar LUTHER 8 8 LAZARUS Bauer T VISIT PSC 10 MINUTES
--- OUTSIDE RECORDS SUMMARY | 2016-10-06 12:05 | External Medical Summary Rpt ---
Author Author , CLARA ELIZABETH Address Unknown Phone [email or web address] Care Team Providers Care Pile Driving Technician Name Role Phone A Juancarlos QIU MD [facility], A Unavailable Unavailable Juancarlos QIU MD [facility]available [facility], [facility], Unavailable Unavailable [facility] GHAZAL DONOVAN, Unavailable Unavailable GHAZAL DONOVAN GHAZAL, SEBASTIAN, Unavailable Unavailable GHAZAL, SEBASTIAN [facility] Unavailable [facility]available [facility], Unavailable [facility]available [facility] CELIA RUSSELL DWYER, Unavailable Unavailable [facility] [place] [facility] [place] [facility] [place] MILTON SANTIAGO, Unavailable Unavailable MILTON SANTIAGO [facility], [facility] Unavailable Unavailable KYLEIGH SANCHEZ, Unavailable Unavailable KYLEIGH SANCHEZ MD, Unavailable Unavailable BELGICA MERA, KASSANDRA Unavailable Unavailable EDE HARPEL DUANE, HARPEL Unavailable Unavailable DUANE HARPEL DUANE, HARPEL Unavailable Unavailable DU[facility], [facility] LORA ARINA, Unavailable Unavailable LORA ARINA LORA ARINA, Unavailable Unavailable LORA ARINA [facility] Unavailable Unavailable [facility], [facility] Unavailable Unavailable [facility], [facility] KILPELA JEA, KILPELA Unavailable Unavailable JEA [facility], Unavailable Unavailable [facility], Unavailable Unavailable [facility] TRINIDAD ISRAEL, TRINIDAD Unavailable Unavailable ISRAEL [facility], Unavailable Unavailable PA[facility], Unavailable Unavailable [facility] Unavailable Unavailable SERVICES, [facility] VIKA MAL, VIKA MAL Unavailable Unavailable [facility], Unavailable Unavailable [facility]Y [facility] Unavailable Unavailable LAB, PATHOLOGY & CYTOLOGY LAB [facility], Unavailable Unavailable [facility], Unavailable Unavailable [facility] MARCO ISRAEL, MARCO Unavailable Unavailable ISRAEL MARCO ISRAEL, MARCO Unavailable Unavailable ISRAEL [id number], Unavailable Unavailable [id number] FINA, ROBERTA, FINA, Unavailable Unavailable ROBERTA CARDOZA, Unavailable Unavailable BEAR AVENDAÑO, POP Unavailable Unavailable KATERYNA WEHRMAN III ZEN, Unavailable Unavailable WEHRMAN III ZEN HERMES ACEVEDO, Unavailable Unavailable HERMES ACEVEDO, LAZARUS Hernández Unavailable Unavailable Edgar QIU WRIGHT, Unavailable Unavailable Edgar Bauer Purpose Continuity of Care Document - 03-11-2007 through 2016 Problems Code Diagnosis DOS Provider Status [id number] HORDEOLUM 08-10-2014 A Juancarlos QIU EXTERNUM PSC 6823 CELLULITIS 06-18-2014 [facility] OF [facility] INC ARM AND FOREARM 9134 ELB 06-18-2014 [facility] INSECT INC BITE NONVENOMOUS W/O INF 1110 PITYRIASIS 05-30-2014 A Juancarlos CAO MD PSC 7242 LUMBAGO 05-30-2014 Edgar QIU MD PSC V154 PERS HX 04-09-2014 [facility] PUBLIC TH AL TRAUMA PRS [facility] 4660 ACUTE 12-28-2013 A Juancarlos QIU BRONCHITIS PSC 7841 THROAT PAIN 12-28-2013 A Juancarlos QIU MD PSC 6202 OTHER AND 11-18-2013 BELGICA Greene UNSPECIFIED TOYA ACOSTA OVARIAN CYST 6200 FOLLICULAR 11-11-2013 [facility] 6259 UNSPEC 11-11-2013 [facility] W/FEMALE GENITAL ORGANS 6173 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 V7231 ROUTINE 10-14-2013 HARPE[facility] DUANE GYNECOLOGIC AL EXAMINATION 6268 OTH D/O 08-01-2011 MARCO ISRAEL MENSTRUATIO N&OTH ABN BLEED FE GNT TRACT 7862 COUGH 08-01-2011 [facility] 4919 UNSPECIFIED 07-31-2011 [facility] BRONCHITIS INC 6160 CERVICITIS 07-31-2011 PATHOLOGY & AND CYTOLOGY ENDOCERVICI LAB TIS 6170 ENDOMETRIOS 07-31-2011 PATHOLOGY & IS OF CYTOLOGY UTERUS LAB 6179 ENDOMETRIOS 07-31-2011 BEAR IS, SITE SONY UNSPECIFIED 27139 UNSPECIFIED 07-28-2011 HARPEL DUANE VAGINITIS AND VULVOVAGINI TIS 6262 EXCESSIVE 07-22-2011 [facility] MENSTRUATIO N 6159 UNSPECIFIED 06-30-2011 HARPEL DUANE INFLAMMATOR Y DISEASE OF UTERUS V7241 06-02-2011 HARPE[facility] DUANE EXAMINATION OR TEST NEGATIVE RESULT 6146 PELVIC 02-03-2011 HARPEL DUANE PERITONEAL ADHESIONS, FEMALE 7840 HEADACHE 01-25-2011 [facility] 2180 SUBMUCOUS 11-08-2010 [facility] LEIOMYOMA PHYSICIAN OF UTERUS GROUP [facility] 6201 CORPUS 10-28-2010 [facility] LUTEUM CYST PHYSICIAN OR GROUP [facility] HEMATOMA V692 PROBLEMS 10-15-2010 [facility] HIGH-RISK SEXUAL BEHAVIOR 5258 OTHER SPEC 01-11-2010 LOR[facility] DISORDERS ARINA TEETH&SUPPO RTING STRUCTURES 5264 INFLAMMATOR 01-11-2010 LORA Y ARINA CONDITIONS OF JAW 4659 ACUTE URIS 12-19-2009 Edgar ERAZO PSC UNSPECIFIED SITE 462 ACUTE 11-24-2009 [facility] 82924 OTHER 10-30-2009 [facility] FATIGUE 39845 LATERAL 02-19-2009 [facility] [place] [facility]OND[facility] IS OF [facility] S PLC V571 OTHER 02-07-2009 [facility] THERAPY INC 45625 PAIN IN 01-08-2009 SEBASTIAN SANCHEZ GHZAAL UPPER ARM 6253 DYSMENORRHE 11-23-2008 Edgar Hernández MD PSC 6264 IRREGULAR 11-23-2008 [facility]UAL [facility] CYCLE INC 6266 METRORRHAGI 11-23-2008 A Juancarlos Hernández MD PSC V741 SCREENING 08-02-2008 A Juancarlos PANIAGUA MD [facility] TUBERCULOS[facility] S 8472 LUMBAR 06-09-2008 [facility] 21151 GLUCOCORTIC 05-07-2008 [facility] DEFICIENCY 71463 OTHER 05-07-2008 [facility] [place] [address] CHEST PAIN 05-07-2008 [facility] UNSPECIFIED [facility] 8820 OPEN WOUND 04-22-2008 [facility] HAND NO [facility] FINGER INC ALONE W/O MENTION COMP 8830 OPEN WOUND 04-22-2008 KEITH FINGER NATIONAL WITHOUT CORPORATION MENTION COMPLICATIO N 9595 INJURY 04-22-2008 KEITH OTHER AND NATIONAL UNSPECIFIED CORPORATION FINGER 05435 PAIN IN 04-18-2008 A Juancarlos SANCHEZ MD PSC LOWER LEG 1330 SCABIES 12-01-2007 A Juancarlos QIU MD [facility] 37418 UNSPECIFIED 09-01-2007 [facility] [place] [facility] 18206 OTHER SIGN 03-23-2007 [facility] AND SYMPTOM MEM [...] 2 60 30 EA 23 MO Ac IA 74 -0 -[address] 59 SE [...] DE ST ZA 10 10 10 EP IA 1 PH HE IN AR N E [...] 4- 4- 00 SI 10 S ve IA [address] AM 91 [...] MG NT HI TA AN B A 00 10 11 00 6. 3 NO 74 FUNMILAYO Ac 59 -2 -0 00 RT 92 HN ti 10 3- 5- 0 H 03 SO ve 34 20 20 PA N 90 09 09 RK CH [address] AR IN M A IN H C 00 10 11 00 11 5 NO 74 FUNMILAYO Ac 14 -2 -0 .0 RT 92 HN ti 31 3- 5- 00 H 05 SO ve 47 20 20 PA N 31 09 09 RK CH [address] AR IN M A IN H C IN 00 10 11 00 30 10 EA 14 MO Ac DO 78 -2 -[address] 84 SE ti ME 12 6- 5- 00 SI 07 S ve TH [address] AC 00 09 09 EP IN 5 PH HE AR N 50 MA A CY MG OF CA CY PS NT UL HI E AN A NA 00 02 04 01 30 30 EA 11 MO Ac DO 78 -1 -[address] 41 SE ti LO 11 0- 9- 00 SI 72 S ve L [address] 20 10 09 09 EP 1 PH HE MG AR N MA A TA CY BL ET OF CY NT HI AN A IB 53 12 04 01 [...] TA NT BL HI ET AN A CY 00 04 04 00 20 7 EA 12 DW Ac CL 59 -0 -[address] 19 YE ti OB 15 3- 9- 00 SI 61 R ve EN [address] ZA 80 09 09 EU IA 1 PH X IN AR E MA 10 CY MG OF CY TA NT BL HI ET AN A TR 60 04 04 00 12 2 EA 12 DW Ac AM 50 -0 -[address] 19 YE ti AD 50 3- 9- 00 SI 60 R ve OL [address] 10 09 09 EU HC 8 PH X L AR 50 MA CY MG OF TA CY BL NT ET HI AN A NA 00 02 02 00 60 30 EA 11 MO Ac IA 09 -1 -[address] 41 SE [...] OF ET CY NT HI AN A AZ 00 01 01 00 6. 5 EA 11 GA Ac IT 09 -2 -[address] 20 IN ti HR 37 3- 0- 0 SI 70 EY ve OM 14 20 20 DE YC 61 09 09 WI IN 8 PH CH AR AE 25 [...] Procedures Procedure DOS Code Location Performer Comment IAADIADOO 36581 Edgar SHERIFF STREPTOCO PSC CCUS GROUP A 09199 [facility] TRANSVAGI 4 [facility] NAL INC INC 12420 GHAZAL GHAZAL TRANSVAGI 4 DONOVAN DONOVAN NAL IADNA 68381 HAR[facility] HARPEL NEISSERIA 4 DUANE DUANE GONORRHOE AE DIRECT PROBE TQ CULTURE 45870 [facility] HARPEL CHLAMYDIA 4 DUANE DUANE ANY SOURCE URINLS 58083 [facility] HARPEL DIP 4 DUANE DUANE STICK/TAB LET REAGNT NON-AUTO [facility] G0378 [facility] OBSERVATI 2 [facility] ON INC INC SERVICE PER HOUR [facility] G0378 [facility] OBSERVATI 2 [facility] ON INC INC SERVICE PER HOUR INITIAL 82115 [facility] 2 ISRAEL ISRAEL CARE/DAY 70 MINUTES RADIOLOGI 28238 [facility] C 2 [facility] EXAMINATI INC INC ON CHEST SINGLE VIEW FRONTAL CUL BACT 68967 [facility] XCPT 2 [facility] URINE INC INC BLOOD/STO OL AEROBIC ISOL CUL BACT 18138 [facility] AEROBIC 2 [facility] ADDL INC INC METHS DEFINITIV E EA ISOL PRESSURIZ 46468 [facility] ED/NONPRE 2 MEM HOS[facility] MEM HOS[facility] SSURIZED INC INC INHALATIO N TREATMENT BLOOD 86761 [facility] COUNT 2 MEM [facility]OS[facility] COMPLETE INC INC AUTO&AUTO DIFRNTL WBC SUSCEPTIB 31798 [facility] LTY STDY 2 [facility] ANTIMICRB INC INC IAL MICRO/AGA R DILUTJ SMR PRIM 12588 [facility] SRC 2 [facility] GRAM/GIEM INC INC SA STAIN BCT FUNGI/KERON L BLOOD 64522 [facility] COUNT 2 [facility] HEMOGLOBI INC INC N URNLS DIP 10478 [facility] 2 [facility]OS[facility] STICK/TAB INC INC LET REAGENT AUTO MICROSCOP Y PRESSURIZ 53165 [facility] ED/NONPRE 2 MEM [facility] MEM HOS[facility] SSURIZED INC INC INHALATIO N TREATMENT VAGINAL 03527 [facility] HYSTERECT 2 MEM HOS[facility] MEM HOS[facility] TONY INC INC UTERUS 250 GM/< BLOOD 68412 [facility] COUNT 2 MEM H[facility] MEM HOSP [place] [address] PATHOLOGY TRINIDAD SURG 2 & [facility] PATHOLOGY CYTOLOGY LAB GROSS&ERIN ROSCOPIC EXAM NONINVASI 39127 [facility] VE 2 [facility] EAR/PULSE INC INC OXIMETRY OVERNIGHT MONITOR ANESTHESI 99233 [facility] POP A VAGINAL 2 ANESTH [facility]ERYNA [facility] G0378 [facility] B[facility] OBSERVATI 2 MEM [facility] ON INC INC SERVICE PER HOUR THERAPEUT 21356 HARPEL HARPEL IC 2 DUANE DUANE PROPHYLAC TIC/DX INJECTION SUBQ/IM SMR PRIM 42422 HARPE[facility] HARPEL SRC WET 2 DUANE DUANE MOUNT NFCT AGT URINE 86077 [facility]OW[facility] 2 [facility] TEST INC INC VISUAL COLOR CMPRSN METHS BLOOD 01490 [facility] COUNT 2 MEM [facility]OS[facility] COMPLETE INC INC AUTO&AUTO DIFRNTL WBC URNLS DIP 27485 GRACIE GRACIE 2 MEM [facility]OS[facility] STICK/TAB INC INC LET REAGENT AUTO MICROSCOP Y HGB 80037 HARPE[facility] HARPEL QUANTITAT 2 DUANE DUANE ORTIZ TRANSCUTA NEOUS URINE 45291 HARPEL HARPEL 2 DUANE DUANE TEST VISUAL COLOR CMPRSN METHS THERAPEUT 79347 HARPEL HARPEL IC 2 DUANE DUANE PROPHYLAC TIC/DX INJECTION SUBQ/IM URINE 40471 HARPEL HARPEL 2 DUANE DUANE TEST VISUAL COLOR CMPRSN METHS URINE 05917 HARPEL HARPEL 2 DUANE DUANE TEST VISUAL COLOR CMPRSN METHS VISUAL 35876 [facility] FIELD XM 1 GRE GRE UNI/BI W/INTERP EXTENDED EXAM EXCISION 7032 [facility] OR 1 [facility] DESTRUCTI INC INC ON OF LESION OF CUL-DE-SA C LAPAROSCP 6581 [facility] IC LYSIS 1 MEM HOS[facility]OS[facility] ADHESIONS INC INC OVARY&[place] [address] [facility] INFUSION 1 [facility] H[facility] THERAPY INC INC PROPHYLAX IS/DX EA HOUR ANESTHESI 46930 COMMUNITY KASSANDRA A 1 ANESTH EDE INTRAPERI OF THE TONEAL BLUE LOWER ABD W/LAPS NOS URNLS DIP 65237 [facility] 1 [facility]OS[facility] STICK/TAB INC INC LET REAGENT AUTO MICROSCOP Y BLOOD 29084 [facility] COUNT 1 MEM H[facility] MEM HOS[facility] HEMOGLOBI INC INC N LAPAROSCO 21891 [facility] HARPEL PY 1 PHYSICIAN DUANE W/LYSIS GROUP OF PCC ADHESIONS BLOOD 50224 [facility] COUNT 1 MEM HOS[facility] MEM HOSP HEMATOCRI INC INC T BLOOD 69260 [facility] COUNT 1 MEM [facility]OS[facility] COMPLETE INC INC AUTO&AUTO DIFRNTL WBC URINE 08119 [facility] BOWMAN 1 [facility] TEST INC [place] [address] [facility] TRANSVAGI 1 MEDICAL DONOVAN NAL IMAGING ASS IADNA NOS 86653 BIO BIO 1 REFERNCE REFERNCE AMPLIFIED LABORATOR LABORATOR PROBE TQ IES IES EACH ORGANISM IADNA 97593 BIO BIO NEISSERIA 1 REFERNCE REFERNCE LABORATOR LABORATOR GONORRHOE IES IES AE AMPLIFIED PROBE TQ CYTP C/V 00724 BIO BIO AUTO THIN 1 REFERNCE 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 LABORATOR LABORATOR PREPJ SCR IES IES MNL RESCR PHYS IADNA 22957 BIO BIO CHLAMYDIA 1 REFERNCE REFERNCE LABORATOR LABORATOR TRACHOMAT [place]ES [place]Q [address] [place] [place] [facility] TRANSVAGI 1 MEDICAL DONOVAN NAL IMAGING ASS IADNA 12632 [facility] NEISSERIA 1 DIAGNOSTI DIAGNOSTI CS CS GONORRHOE AE AMPLIFIED PROBE TQ IADNA 00864 [facility] CHLAMYDIA 1 DIAGNOSTI DIAGNOSTI CS CS TRACHOMAT IS AMPLIFIED PROBE TQ DEEP D9220 GUIDO LORA SEDATION/ 0 ARINA ARINA GENERAL ANESTHESI A-1ST 30 MINUTES ALVEOLOPL 04161 LORA LORA ASTY EACH 0 ARINA ARINA QUADRANT SPECIFY ORTHOPANT 43616 G[facility] LORA OGRAM 0 ARINA ARINA IADNA 38101 Edgar Hernández STREPTOCO 0 LAZARUS ACOSTA CCUS [place] [address] [facility]ROID 0 [facility] INC STIMULATI NG HORMONE TSH APPL 26517 [facility] B[facility] MODALITY 9 [facility] 1/> AREAS INC INC ELEC STIMJ UNATTENDE D THERAPEUT 80724 [facility] B[facility] IC PX 1/> 9 [facility] AREAS INC INC EACH 15 MIN EXERCISES APPL 53979 [facility] B[facility] MODALITY 9 [facility] 1/> AREAS INC INC IONTOPHOR ESIS EA 15 MIN APPLICATI 87630 [facility] ON 9 [facility] MODALITY INC INC 1/> AREAS HOT/COLD PACKS APPL 60354 [facility] MODALITY 9 [facility] 1/> AREAS INC INC ULTRASOUN D EA 15 MIN ARTHROCEN 89353 WING ELYSE ACEVEDO 9 [place] HERMES Bauer ASPIR&/IN ORTHOPAED J INTERM ICS PLC JT/BURS W/O US APPL 34437 [facility] MODALITY 9 [facility] 1/> AREAS INC INC ULTRASOUN D EA 15 MIN APPLICATI 91091 [facility]MAN ON 9 [facility] MODALITY INC INC 1/> AREAS HOT/COLD PACKS THERAPEUT 28318 [facility] BOWMAN IC PX 1/> 9 [facility] AREAS INC INC EACH 15 MIN EXERCISES APPL 45283 [facility] MODALITY 9 [facility] 1/> AREAS INC INC IONTOPHOR ESIS EA 15 MIN APPL 23501 [facility] BOWMAN MODALITY 9 MEM [facility] 1/> AREAS INC INC ELEC STIMJ UNATTENDE D APPL 68804 [facility] MODALITY 9 [facility] 1/> AREAS INC INC ELEC STIMJ UNATTENDE D THERAPEUT 23567 [facility] BOWMAN IC PX 1/> 9 [facility] AREAS INC INC EACH 15 MIN EXERCISES APPL 74336 [facility] B[facility] MODALITY 9 [facility] 1/> AREAS INC INC IONTOPHOR ESIS EA 15 MIN APPLICATI 88880 [facility] ON 9 [facility] MODALITY INC INC 1/> AREAS HOT/COLD PACKS APPL 74516 [facility] BOWMAN MODALITY 9 [facility] 1/> AREAS INC INC ULTRASOUN D EA 15 MIN APPL 77432 [facility]OWMAN MODALITY 9 [facility] 1/> AREAS INC INC ULTRASOUN D EA 15 MIN APPLICATI 17255 GR[facility]IE BOWMAN ON 9 MEM [facility] MODALITY INC INC 1/> AREAS HOT/COLD PACKS THERAPEUT 90850 GRACIE BOWMAN IC PX 1/> 9 [facility] AREAS INC INC EACH 15 MIN EXERCISES APPL 19056 [facility] MODALITY 9 [facility] 1/> AREAS INC INC IONTOPHOR ESIS EA 15 MIN APPL 13711 [facility] B[facility] MODALITY 9 [facility] 1/> AREAS INC INC [place]LE[place] [address] SEBASTIAN C GHAZAL, JT UPPER 9 GHAZAL SEBASTIAN EXTREMITY W/O CONTRAST MATRL RADEX 62376 [facility] ELBOW 9 [facility] COMPLETE INC INC MINIMUM 3 VIEWS RADEX 32321 [facility] FINA, ELBOW [address] [facility] INC MINIMUM 3 [place] [address] GR[facility] GARNERON TRANSVAGI 9 [facility] NAL INC INC GONADOTRO 62079 Edgar LUTHER PIN 9 LAZARUS Bauer CHORIONIC PSC QUANTITAT ORTIZ TB CELL 09855 Edgar LUTHER MEDIATED 9 LAZARUS Bauer ANTIGN PSC RESPNSE GAMMA INTERFERO N GROUND A0425 [facility] MILEAGE 9 CO EMS CO EMS PER STATUTE MILE AMBULANCE A0429 [facility] OKEEFEOLL SERVICE 9 CO EMS CO EMS BLS EMERGENCY TRANSPORT CLOSURE 8659 [facility] SKIN&SUBC 9 [facility] UTANEOUS INC INC TISSUE OTHER SITES SIMPLE 61799 KEITH DANIEL, REPAIR 9 NATIONAL KYLEIGH S SCALP/NEC CORPORATI K/AX/FLO ON T/TRUNK 2.5CM/< [place] [address] [facility] STREPTOCO 9 [facility] CCUS INC INC GROUP A MAMMOGRAP 09566 [facility] BOW[facility] HY 8 [facility] BILATERAL INC INC MAMMOGRAP 81837 [facility]OWMAN HY 8 [facility] UNILATERA INC INC L US BREAST 35246 BOB VALENZUELA 8 MEDICAL SEBASTIAN TIME IMAGING W/IMAGE ASSOCIATE DOCUMENTA S TION Encounters Encounter Start End Date Code Location Performer Type Date OFFICE 40691 A C KILPELA OUTPATIEN 5 5 LAZARUS SHERIFF T VISIT PSC 15 MINUTES HOSPITAL [facility] - 5 5 [facility] OUTPATIEN INC T EMERGENCY 68788 GRACIE 5 5 [facility] DEPARTMEN INC T VISIT LIMITED/M INOR PROB OFFICE 11745 A C FIELD AMB OUTPATIEN 5 5 LAZARUS ACOSTA T VISIT PSC 15 MINUTES OFFICE 28329 A C KILPELA OUTPATIEN 4 4 LAZARUS SHERIFF T VISIT PSC 15 MINUTES OFFICE 23517 [place] PRINCEL OUTPATIEN 4 4 TOYA ZEPEDA T VISIT 10 MINUTES HOSPITAL GRACIE - 4 4 [facility] OUTPATIEN INC T OFFICE 14682 [facility] HARPEL OUTPATIEN 4 4 DUANE DUANE T VISIT 15 MINUTES HOSPITAL GRACIE - 4 4 [facility] OUTPATIEN INC T PERIODIC 77599 [facility] HARPEL PREVENTIV 4 4 DUANE DUANE E MED EST PATIENT 18-39 YRS HOSPITAL GRACIE - 2 2 [facility] OUTPATIEN INC T OFFICE 43624 HARPEL HARPEL OUTPATIEN 2 2 DUANE DUANE T VISIT 15 MINUTES HOSPITAL GRACIE - 2 2 [facility] OUTPATIEN INC T OFFICE 14496 [facility]L HARPEL OUTPATIEN 2 2 DUANE DUANE T VISIT 15 MINUTES OFFICE 88566 [facility] HARPEL OUTPATIEN 2 2 DUANE DUANE T VISIT 5 MINUTES OFFICE 17833 [facility]L HARPEL OUTPATIEN 2 2 DUANE DUANE T VISIT 15 MINUTES OFFICE 12463 [facility] HARPEL OUTPATIEN 2 2 DUANE DUANE T VISIT 15 MINUTES OFFICE 49194 [facility] HARPEL OUTPATIEN 2 2 DUANE DUANE T VISIT 15 MINUTES OFFICE 75463 [facility] HARPEL OUTPATIEN 1 1 DUANE DUANE T VISIT 15 MINUTES OFFICE 64670 PAUL MILLER OUTPATIEN 1 1 GRE GRE T NEW 45 MINUTES OFFICE 74026 [facility] HARPEL OUTPATIEN 1 1 PHYSICIAN DUANE T VISIT GROUP 15 PCC MINUTES HOSPITAL GRACIE - 1 1 [facility] OUTPATIEN INC T HOSPITAL GRACIE - 1 1 [facility] OUTPATIEN INC T OFFICE 82737 [facility] HARPEL OUTPATIEN 1 1 PHYSICIAN DUANE T VISIT GROUP 15 PCC MINUTES HOSPITAL GRACIE - 1 1 MEM [facility] OUTPATIEN INC T OFFICE 83054 [facility] HARPEL OUTPATIEN 1 1 PHYSICIAN DUANE T VISIT GROUP 15 PCC MINUTES OFFICE 56041 [facility] HARPEL OUTPATIEN 1 1 PHYSICIAN DUANE T NEW 60 GROUP MINUTES [facility] GRACIE - 1 1 [facility] HOS[facility] OUTPATIEN INC T OFFICE 87226 VIKA MAL VIKA MAL OUTPATIEN 1 1 T VISIT 15 MINUTES OFFICE 68130 GUIDO LORA OUTPATIEN 0 0 ARINA ARINA T NEW 10 MINUTES OFFICE 06179 Edgar Hernández OUTPATIEN 0 0 LAZARUS ACOSTA T VISIT PSC 15 MINUTES EMERGENCY 60534 GRACIE 0 0 [facility] V[facility]/M INOR PROB HOSPITAL GRACIE - 0 0 [facility] OUTPATIEN INC T EMERGENCY 91875 PAUL GUADALUPE 0 0 EMERGENCY III [facility]PART[facility] SERVICES T VISIT MODERATE SEVERITY OFFICE 51580 Edgar Hernández OUTPATIEN 0 0 LAZARUS ACOSTA T VISIT PSC 15 MINUTES OFFICE 75609 WING MICHELE ACEVEDOPATIMARIO ALBERTO 9 9 SUNDEEP Bauer T VISIT ORTHOPAED 15 [facility] MINUTES HOSPITAL GRACIE - 9 9 [facility]PATI[facility] T HOSPITAL GRACIE - 9 9 [facility] OUTPATIEN [facility] T OFFICE 18892 WING CURTIS CONSULT 9 9 [place] HERMES Bauer ION ORTHOPAED NEW/ESTAB ICS PLC PATIENT 60 MIN HOSPITAL GRACIE - 9 9 [facility] OUTPATIEN [facility] T OFF[facility] 28754 Edgar LUTHER OUTPATIMARIO ALBERTO 9 9 LAZARUS Bauer T VISIT PSC 15 MINUTES HOSPITAL NEW - 9 9 [facility] [id number] ACUTE [place], 9 9 [facility] BILL[facility] T VISIT [place] [facility] MODERATE SEVERITY HOSPITAL GRACIE - 9 9 [facility] OUTPATIEN INC T OFFICE 01702 Edgar LUTHER 9 9 LAZARUS Bauer T VISIT PSC 15 MINUTES EMERGENCY [id number] PAUL RUSSELL, 9 9 EMERGENCY [facility] T VISIT MODERATE ASSOCIATE SEVERITY S HOSPITAL GRACIE - 9 9 [facility] OUTPATIEN INC T EMERGENCY 36659 GRACIE 9 9 [facility] LOW/MODER SEVERITY OFFICE 64576 Edgar LUTHER 9 9 LAZARUS Bauer T VISIT PSC 15 MINUTES EMERGENCY 75201 GRACIE 9 9 [facility]IT MODERATE SEVERITY EMERGENCY 45932 INNA SANCHEZ, 9 9 [facility] T VISIT ON HIGH/URGE NT SEVERITY HOSPITAL GRACIE - 9 9 [facility] OUTPATIEN INC T OFFICE 58963 Edgar LUTHER 8 8 LAZARUS Bauer T VISIT PSC 15 MINUTES HOSPITAL GRACIE - 8 8 [facility] OUTPATIEN INC T EMERGENCY 07467 GRACIE 8 8 [facility]ISIT LOW/MODER SEVERITY HOSPITAL GRACIE - 8 8 [facility] OUTPATIEN INC T HOSPITAL GRACIE [facility] 8 8 [facility] OUTPATIEN INC T OFFICE [id number] Edgar LUTHER 8 8 LAZARUS Bauer T VISIT PSC 10 MINUTES
--- OUTSIDE RECORDS SUMMARY | 2016-10-06 12:05 | External Medical Summary Rpt ---
Author Author , CLARA ELIZABETH Address Unknown Phone [email or web address] [facility] Care Team Providers Care Rfid Systems Architect Name Role Phone A Juancarlos QIU MD [...] SR[facility] CELIA RUSSELL DWYER, Unavailable Unavailable [facility] [place], [facility] [place] [facility] [place] Un[place] [facility] MILTON SANTIAGO, Unavailable Unavailable IMLTON SANTIAGO [facility]ELD [facility], FIELD AMB Unavailable Unavailable KYLEIGH SANCHEZ, Unavailable Unavailable KYLEIGH SANCHEZ MD, Unavailable Unavailable BELGICA MERA, KASSANDRA Unavailable Unavailable EDE HARPEL DUANE, HARPEL Unavailable Unavailable DUANE HARPEL UDANE, HARPEL Unavailable Unavailable [facility], [facility] LORA ARINA, Unavailable Unavailable LORA ARINA LORA ARINA, Unavailable Unavailable LORA ARINA [facility] Unavailable Unavailable [facility], [facility] Unavailable Unavailable [facility], [facility] KILPELA JEA, KILPELA Unavailable Unavailable JEA [facility], Unavailable Unavailable [facility], Unavailable Unavailable [facility] TRINIDAD ISRAEL, TRINIDAD Unavailable Unavailable [place]RAEL PAUL GRE, Unavailable Unavailable PAUL GRE PAUL [facility], Unavailable Unavailable [facility] Unavailable Unavailable SERVICES, [facility] VIKA MAL, VIKA MAL Unavailable [...] 2016 Problems Code Diagnosis DOS Provider Status 56127 HORDEOLUM 08-10-2014 A Juancarlos QIU EXTERNUM PSC [...] TOYA ACOSTA OVARIAN CYST 6200 FOLLICULAR 11-11-2013 [place] [facility] 6259 UNSPEC 11-11-2013 [place] [facility] W/FEMALE GENITAL ORGANS 6173 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 V7231 ROUTINE 10-14-2013 HARPEL DUANE GYNECOLOGIC AL EXAMINATION 6268 OTH D/O 08-01-2011 MARCO ISRAEL MENSTRUATIO N&OTH ABN BLEED FE GNT TRACT 7862 COUGH 08-01-2011 [facility] 4919 UNSPECIFIED 07-31-2011 [facility] BRONCHITIS INC 6160 CERVICITIS 07-31-2011 PATHOLOGY & AND CYTOLOGY ENDOCERVICI LAB TIS 6170 ENDOMETRIOS 07-31-2011 PATHOLOGY & IS OF CYTOLOGY UTERUS LAB 6179 ENDOMETRIOS 07-31-2011 BEAR IS, SITE SONY UNSPECIFIED 69291 UNSPECIFIED 07-28-2011 HARPEL DUANE VAGINITIS AND VULVOVAGINI TIS 6262 EXCESSIVE 07-22-2011 [facility] INC MENSTRUATIO N 6159 UNSPECIFIED 06-30-2011 HARPEL DUANE INFLAMMATOR Y DISEASE OF UTERUS V7241 06-02-2011 HARPEL DUANE EXAMINATION OR TEST NEGATIVE RESULT 6146 PELVIC 02-03-2011 HARPEL DUANE PERITONEAL ADHESIONS, FEMALE 7840 HEADACHE 01-25-2011 [facility] 2180 SUBMUCOUS 11-08-2010 [facility] LEIOMYOMA PHYSICIAN OF UTERUS GROUP [facility] 6201 CORPUS 10-28-2010 [facility] LUTEUM CYST PHYSICIAN OR GROUP [facility] HEMATOMA V692 PROBLEMS 10-15-2010 [facility]AGNOST[facility] HIGH-RISK SEXUAL BEHAVIOR 5258 OTHER SPEC 01-11-2010 L[facility] DISORDERS ARINA TEETH&SUPPO RTING STRUCTURES 5264 INFLAMMATOR 01-11-2010 LORA Y ARINA CONDITIONS OF JAW 4659 ACUTE URIS 12-19-2009 Edgar ERAZO PSC UNSPECIFIED SITE 462 ACUTE 11-24-2009 [facility] 40270 OTHER 10-30-2009 [facility] FATIGUE 80693 LATERAL 02-19-2009 [facility] [place] EP[facility] IS OF [facility] S PLC V571 OTHER 02-07-2009 [facility] THERAPY INC 35549 PAIN IN 01-08-2009 SEBASTIAN SANCHEZ GHAZAL UPPER ARM 6253 DYSMENORRHE 11-23-2008 Edgar Hernández MD PSC 6264 IRREGULAR 11-23-2008 [facility]UAL [facility] CYCLE INC 6266 METRORRHAGI 11-23-2008 A Juancarlos Hernández MD PSC V741 SCREENING 08-02-2008 A Juancarlos PANIAGUA MD [facility] TUBER[facility]UL[facility] S 8472 LUMBAR 06-09-2008 [facility] 28127 GLUCOCORTIC 05-07-2008 [facility] DEFICIENCY 55959 OTHER 05-07-2008 [place] [address] CHEST PAIN 05-07-2008 [facility] UNSPECIFIED EMS 8820 OPEN WOUND 04-22-2008 [facility] HAND NO [facility] FINGER INC ALONE W/O MENTION COMP 8830 OPEN WOUND 04-22-2008 KEITH FINGER NATIONAL WITHOUT CORPORATION MENTION COMPLICATIO N 9595 INJURY 04-22-2008 KEITH OTHER AND NATIONAL UNSPECIFIED CORPORATION FINGER 14122 PAIN IN 04-18-2008 A Juancarlos SANCHEZ MD PSC LOWER LEG 1330 SCABIES 12-01-2007 A Juancarlos QIU MD [facility] 14199 UNSPECIFIED 09-01-2007 [place] [facility] 58242 OTHER SIGN 03-23-2007 [facility] AND SYMPTOM MEM [...] 2 60 30 EA 23 MO Ac TN 74 -0 -[address] SE [...] DE ST ZA 10 10 10 EP TN 1 PH HE IN AR N E [...] 4- 4- 00 SI 10 S ve TN [address] AM 91 [...] DE DR ZA 80 09 09 EU TN 1 PH X IN AR E MA [...] 00 60 30 EA 11 MO Ac TN 09 -1 -[address] 41 SE [...] 20 20 DE YC 61 09 09 DE IN 8 PH CH AR AE 25 [...] Procedure DOS Code Location Performer Comment IAADIADOO 36584 Edgar SHERIFF STREPTOCO [place] A [address] [facility] TRANSVAGI 4 [facility] NAL INC INC 22770 GHAZAL GHAZAL TRANSVAGI 4 DONOVAN DONOVAN NAL IADNA 06771 [facility] HARPEL NEISSERIA 4 DUANE DUANE GONORRHOE AE DIRECT PROBE TQ CULTURE 26874 [facility] HARPEL CHLAMYDIA 4 DUANE DUANE ANY SOURCE URINLS 39706 [facility] HARPEL DIP 4 DUANE DUANE STICK/TAB LET REAGNT NON-AUTO [facility] G0378 [facility] OBSERVATI 2 [facility] ON INC INC SERVICE PER HOUR [facility] G0378 [facility] OBSERVATI 2 [facility] ON INC INC SERVICE PER HOUR INITIAL 88470 [facility] 2 [place] ISRAEL CARE/DAY 70 MINUTES RADIOLOGI 47769 [facility] C 2 [facility] EXAMINATI INC INC ON CHEST SINGLE VIEW FRONTAL CUL BACT 12493 [facility] XCPT 2 [facility] URINE INC INC BLOOD/STO OL AEROBIC ISOL CUL BACT 34508 [facility] AEROBIC 2 [facility] ADDL INC INC METHS DEFINITIV E EA ISOL PRESSURIZ 22909 [facility] ED/NONPRE 2 MEM HOS[facility] MEM [facility]OS[facility] SSURIZED INC INC INHALATIO N TREATMENT BLOOD 86564 [facility] COUNT 2 [facility] COMPLETE INC INC AUTO&AUTO DIFRNTL WBC SUSCEPTIB 39273 [facility] LTY STDY 2 [facility] ANTIMICRB INC INC IAL MICRO/AGA R DILUTJ SMR PRIM 69654 [facility] SRC 2 [facility] GRAM/GIEM INC INC SA STAIN BCT FUNGI/KERON L BLOOD 26382 [facility] COUNT 2 [facility] HEMOGLOBI INC INC N URNLS DIP 23302 [facility] 2 [facility] STICK/TAB INC INC LET REAGENT AUTO MICROSCOP Y PRESSURIZ 04429 [facility] ED/NONPRE 2 [facility] MEM [facility]OS[facility] SSURIZED INC INC INHALATIO N TREATMENT VAGINAL 13116 [facility] HYSTERECT 2 [facility] TONY INC INC UTERUS 250 GM/< BLOOD 67650 [facility] COUNT 2 MEM [facility] MEM HOSP H[place]ATOCRI INC [place] [address] PATHOLOGY TR[place] SURG 2 & ISRAEL PATHOLOGY CYTOLOGY LAB GROSS&ERIN ROSCOPIC EXAM NONINVASI 78432 [facility] VE 2 [facility] EAR/PULSE INC INC OXIMETRY OVERNIGHT MONITOR ANESTHESI 16286 [facility] POP A VAGINAL 2 ANESTH KATERYNA OF THE HYSTERECT [facility] G0378 [facility] OBSERVATI 2 [facility] ON INC INC SERVICE PER HOUR THERAPEUT 80573 HARPEL HARPEL IC 2 DUANE DUANE PROPHYLAC TIC/DX INJECTION SUBQ/IM SMR PRIM 94395 HARPE[facility] HARPEL SRC WET 2 DUANE DUANE MOUNT NFCT AGT URINE 38460 [facility] 2 [facility] TEST INC INC VISUAL COLOR CMPRSN METHS BLOOD 59949 [facility] COUNT 2 [facility] COMPLETE INC INC AUTO&AUTO DIFRNTL WBC URNLS DIP 30004 GR[facility]IE GRACIE 2 [facility] STICK/TAB INC INC LET REAGENT AUTO MICROSCOP Y HGB 83824 HARPEL HARPEL QUANTITAT 2 DUANE DUANE ORTIZ TRANSCUTA NEOUS URINE 17732 HARPEL HARPEL 2 DUANE DUANE TEST VISUAL COLOR CMPRSN METHS THERAPEUT 41493 HARPEL HARPEL IC 2 DUANE DUANE PROPHYLAC TIC/DX INJECTION SUBQ/IM URINE 59545 HARPEL HARPEL 2 DUANE DUANE TEST VISUAL COLOR CMPRSN METHS URINE 69303 HARPEL HARPEL 2 DUANE DUANE TEST VISUAL COLOR CMPRSN METHS VISUAL 90960 [facility] FIELD XM 1 GRE GRE UNI/BI W/INTERP EXTENDED EXAM EXCISION 7032 [facility] OR 1 [facility] DESTRUCTI INC INC ON OF LESION OF CUL-DE-SA C LAPAROSCP 6581 [facility] IC LYSIS 1 [facility] ADHESIONS INC INC OVARY&[place] [address] [facility] INFUSION 1 [facility] THERAPY INC INC PROPHYLAX IS/DX EA HOUR ANESTHESI 00836 COMMUNITY KASSANDRA A 1 ANESTH EDE INTRAPERI OF THE TONEAL BLUE LOWER ABD W/LAPS NOS URNLS DIP 40786 [facility] 1 [facility] STICK/TAB INC INC LET REAGENT AUTO MICROSCOP Y BLOOD 96651 [facility] COUNT 1 MEM [facility]OS[facility] HEMOGLOBI INC INC N LAPAROSCO 21099 [facility] HARPEL PY 1 PHYSICIAN DUANE W/LYSIS GROUP OF PCC ADHESIONS BLOOD 55068 [facility] COUNT 1 MEM H[facility] MEM HOS[facility] HEMATOCRI INC INC T BLOOD 09465 [facility] COUNT 1 [facility] COMPLETE INC INC AUTO&AUTO DIFRNTL WBC URINE 44304 [facility] BOWMAN 1 [facility] H[facility] TEST INC [place] [address] [facility] TRANSVAGI 1 MEDICAL DONOVAN NAL IMAGING ASS IADNA NOS 74077 BIO BIO 1 REFERNCE REFERNCE AMPLIFIED LABORATOR LABORATOR PROBE TQ IES IES EACH ORGANISM IADNA 40700 BIO BIO NEISSERIA 1 REFERNCE REFERNCE LABORATOR LABORATOR GONORRHOE IES IES AE AMPLIFIED PROBE TQ CYTP C/V 99165 BIO BIO AUTO THIN 1 REFERNCE 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 LABORATOR LABORATOR PREPJ SCR IES IES MNL RESCR PHYS IADNA 96344 BIO BIO CHLAMYDIA 1 REFERNCE REFERNCE LABORATOR LABORATOR TRACHOMAT [place]ES [place] TQ [address]694 [place] [facility] TRANSVAGI 1 MEDICAL DONOVAN NAL IMAGING ASS IADNA 30215 [facility] NEISSERIA 1 DIAGNOSTI DIAGNOSTI CS CS GONORRHOE AE AMPLIFIED PROBE TQ IADNA 05366 [facility] CHLAMYDIA 1 DIAGNOSTI DIAGNOSTI CS CS TRACHOMAT IS AMPLIFIED PROBE TQ DEEP D9220 GUIDO LORA SEDATION/ 0 ARINA ARINA GENERAL ANESTHESI A-1ST 30 MINUTES ALVEOLOPL 91465 LORA LORA ASTY EACH 0 ARINA ARINA QUADRANT SPECIFY ORTHOPANT 83163 [place] LORA OGRAM 0 ARINA ARINA IADNA 73544 Edgar Hernández STREPTOCO 0 LAZARUS ACOSTA CCUS [place] [address] [facility] INC STIMULATI NG HORMONE TSH APPL 55050 [facility] MODALITY 9 [facility] 1/> AREAS INC INC ELEC STIMJ UNATTENDE D THERAPEUT 01207 [facility] B[facility] IC PX 1/> 9 [facility] AREAS INC INC EACH 15 MIN EXERCISES APPL 69095 [facility] B[facility] MODALITY 9 [facility] 1/> AREAS INC INC IONTOPHOR ESIS EA 15 MIN APPLICATI 98984 [facility] ON 9 [facility] MODALITY INC INC 1/> AREAS HOT/COLD PACKS APPL 94204 [facility] MODALITY 9 [facility] 1/> AREAS INC INC ULTRASOUN D EA 15 MIN ARTHROCEN 97273 QUINCY ELYSE ACEVEDO 9 [place] HERMES Bauer ASPIR&/IN ORTHOPAED J INTERM ICS PLC JT/BURS W/O US APPL 41209 [facility] MODALITY 9 [facility] 1/> AREAS INC INC ULTRASOUN D EA 15 MIN APPLICATI 63395 [facility] ON 9 [facility] MODALITY INC INC 1/> AREAS HOT/COLD PACKS THERAPEUT 21970 [facility] IC PX 1/> 9 [facility] AREAS INC INC EACH 15 MIN EXERCISES APPL 19095 [facility] MODALITY 9 [facility] 1/> AREAS INC INC IONTOPHOR ESIS EA 15 MIN APPL 36704 [facility] B[facility] MODALITY 9 [facility] 1/> AREAS INC INC ELEC STIMJ UNATTENDE D APPL 05673 [facility] MODALITY 9 [facility] 1/> AREAS INC INC ELEC STIMJ UNATTENDE D THERAPEUT 54963 [facility] B[facility] IC PX 1/> 9 [facility] AREAS INC INC EACH 15 MIN EXERCISES APPL 26282 [facility] B[facility] MODALITY 9 [facility] 1/> AREAS INC INC IONTOPHOR ESIS EA 15 MIN APPLICATI 18039 [facility] B[facility] ON 9 [facility] MODALITY INC INC 1/> AREAS HOT/COLD PACKS APPL 09179 [facility] B[facility] MODALITY 9 [facility] 1/> AREAS INC INC ULTRASOUN D EA 15 MIN APPL 86638 [facility] MODALITY 9 [facility] 1/> AREAS INC INC ULTRASOUN D EA 15 MIN APPLICATI 23170 [facility]MAN ON 9 [facility] MODALITY INC INC 1/> AREAS HOT/COLD PACKS THERAPEUT 53065 [facility] BOWMAN IC PX 1/> 9 [facility] AREAS INC INC EACH 15 MIN EXERCISES APPL 83045 [facility] MODALITY 9 [facility] 1/> AREAS INC INC IONTOPHOR ESIS EA 15 MIN APPL 65482 [facility] B[facility] MODALITY 9 [facility] 1/> AREAS INC INC ELEC STIMJ [place]ENDE [place] 0[address] SEBASTIAN C GHAZAL, JT UPPER 9 GHAZAL SEBASTIAN EXTREMITY W/O CONTRAST MATRL RADEX 74038 [facility] ELBOW 9 [facility] COMPLETE INC INC MINIMUM 3 VIEWS RADEX 12433 [facility] FINA, ELBOW 9 RADIOLOGY [facility] [place] MINIMUM 3 [place] [address] [facility] GARNERON TRANSVAGI 9 [facility] NAL INC INC GONADOTRO 49615 Edgar LUTHER PIN 9 LAZARUS Bauer CHORIONIC PSC QUANTITAT ORTIZ TB CELL 96483 Edgar LUTHER MEDIATED 9 LAZARUS Bauer ANTIGN PSC RESPNSE GAMMA INTERFERO N GROUND A0425 [facility] MIRELES MILEAGE 9 [facility] EMS CO EMS PER STATUTE MILE AMBULANCE A0429 [facility] OKEEFEOLL SERVICE 9 CO EMS CO EMS BLS EMERGENCY TRANSPORT CLOSURE 8659 [facility] SKIN&SUBC 9 [facility] UTANEOUS INC INC TISSUE OTHER SITES SIMPLE 23460 KEITH DANIEL, REPAIR 9 NATIONAL KYLEIGH S SCALP/NEC CORPORATI K/AX/FLO ON T/TRUNK 2.5CM/< [place] [address] [facility] STREPTOCO 9 [facility] CCUS INC INC GROUP A MAMMOGRAP 20111 [facility] B[facility] HY 8 [facility] BILATERAL INC INC MAMMOGRAP 45370 [facility] HY 8 [facility] UNILATERA INC INC L US BREAST 93936 BOB VALENZUELA 8 MEDICAL SEBASTIAN TIME IMAGING W/IMAGE ASSOCIATE DOCUMENTA S TION Encounters Encounter Start End Date Code Location Performer Type Date OFFICE 10002 A C KILPELA OUTPATIEN 5 5 LAZARUS SHERIFF T VISIT PSC 15 MINUTES HOSPITAL GRACIE - 5 5 [facility] OUTPATIEN INC T EMERGENCY 47815 GRACIE 5 5 [facility] DEPARTMEN INC T VISIT LIMITED/M INOR PROB OFFICE 48751 A C FIELD AMB OUTPATIEN 5 5 LAZARUS ACOSTA T VISIT PSC 15 MINUTES OFFICE 46388 A C KILPELA OUTPATIEN 4 4 LAZARUS SHERIFF T VISIT PSC 15 MINUTES OFFICE 96211 [facility] PRINCEL OUTPATIEN 4 4 TOYA ZEPEDA T VISIT 10 MINUTES HOSPITAL GRACIE - 4 4 [facility] OUTPATIEN INC T OFFICE 54720 [facility] HARPEL OUTPATIEN 4 4 DUANE DUANE T VISIT 15 MINUTES HOSPITAL GRACIE - 4 4 [facility] OUTPATIEN INC T PERIODIC 99811 [facility] HARPEL PREVENTIV 4 4 DUANE DUANE E MED EST PATIENT 18-39 YRS HOSPITAL GRACIE - 2 2 [facility] OUTPATIEN INC T OFFICE 14799 [facility] HARPEL OUTPATIEN 2 2 DUANE DAUNE T VISIT 15 MINUTES HOSPITAL GRACIE - 2 2 [facility] OUTPATIEN INC T OFFICE 46780 [facility] HARPEL OUTPATIEN 2 2 DUANE DUANE T VISIT 15 MINUTES OFFICE 64310 [facility] HARPEL OUTPATIEN 2 2 DUANE DUANE T VISIT 5 MINUTES OFFICE 40421 [facility] HARPEL OUTPATIEN 2 2 DUANE DUANE T VISIT 15 MINUTES OFFICE 91574 [facility] HARPEL OUTPATIEN 2 2 DUANE DUANE T VISIT 15 MINUTES OFFICE 55754 [facility] HARPEL OUTPATIEN 2 2 DUANE DUANE T VISIT 15 MINUTES OFFICE 81068 [facility]L OUTPATIEN 1 1 DUANE DUANE T VISIT 15 MINUTES OFFICE 92846 PAUL MILLER OUTPATIEN 1 1 GRE GRE T NEW 45 MINUTES OFFICE 62491 [facility] HARPEL OUTPATIEN 1 1 PHYSICIAN DUANE T VISIT GROUP 15 PCC MINUTES HOSPITAL GRACIE - 1 1 [facility] OUTPATIEN INC T HOSPITAL GRACIE - 1 1 [facility] OUTPATIEN INC T OFFICE 30099 [facility] HARPEL OUTPATIEN 1 1 PHYSICIAN DUANE T VISIT GROUP 15 PCC MINUTES HOSPITAL GRACIE - 1 1 [facility] OUTPATIEN INC T OFFICE 24982 [facility] HARPEL OUTPATIEN 1 1 PHYSICIAN DUANE T VISIT GROUP 15 PCC MINUTES OFFICE 94348 [facility] HARPEL OUTPATIEN 1 1 PHYSICIAN DUANE T NEW 60 GROUP MINUTES [facility] HOSPITAL GRACIE - 1 1 [facility] OUTPATIEN INC T OFFICE 65795 VIKA MAL VIKA MAL OUTPATIEN 1 1 T VISIT 15 MINUTES OFFICE 12512 GUIDO LORA OUTPATIEN 0 0 ARINA ARINA T NEW 10 MINUTES OFFICE 48749 Edgar Hernández OUTPATIEN 0 0 LAZARUS ACOSTA T VISIT PSC 15 MINUTES EMERGENCY 82826 GRACIE 0 0 [facility] V[facility]/M INOR PROB HOSPITAL GRACIE - 0 0 [facility] OUTPATIEN INC T EMERGENCY 24916 PAUL GUADALUPE 0 0 EMERGENCY III ZEN DEPARTMEN SERVICES T VISIT MODERATE SEVERITY OFFICE 19029 Edgar Hernández OUTPATIEN 0 0 LAZARUS ACOSTA T VISIT PSC 15 MINUTES OFFICE 37482 QUINCY MICHELE ACEVEDOPATIMARIO ALBERTO 9 9 SUNDEEP Bauer T VISIT ORTHOPAED 15 [facility] MINUTES HOSPITAL GRACIE - 9 9 [facility] T HOSPITAL GRACIE - 9 9 [facility] T OFFICE 88154 QUINCY CURTIS CONSULT 9 9 [place] HERM[place] B[place] ION ORTHOPAED NEW/ESTAB ICS PLC PATIENT 60 MIN HOSPITAL GRACIE - 9 9 [facility] T OFFICE 02196 Edgar LUTHER OUTPATIMARIO ALBERTO 9 9 LAZARUS Bauer T VISIT PSC 15 MINUTES HOSPITAL NEW - 9 9 [facility] 26259 ACUTE SANTIAGO, 9 9 [facility] BILLING H T VISIT [place] [facility] MODERATE SEVERITY HOSPITAL GRACIE - 9 9 [facility] OUTPATIEN INC T OFFICE 39134 Edgar LUTHER 9 9 LAZARUS Bauer T VISIT PSC 15 MINUTES EMERGENCY 09831 PAUL RUSSELL, 9 9 EMERGENCY [facility] DEPARTMEN SERVICES T VISIT MODERATE ASSOCIATE SEVERITY S HOSPITAL GRACIE - 9 9 [facility] OUTPATIEN INC T EMERGENCY 07382 GRACIE 9 9 [facility]ISIT LOW/MODER SEVERITY OFFICE 41361 Edgar LUTHER 9 9 LAZARUS Bauer T VISIT PSC 15 MINUTES EMERGENCY 51952 GRACIE 9 9 [facility] T VISIT MODERATE SEVERITY EMERGENCY 10238 INNA SANCHEZ, 9 9 [facility] T VISIT ON HIGH/URGE NT SEVERITY HOSPITAL GRACIE - 9 9 [facility] OUTPATIEN INC T OFFICE 23743 Edgar LUTHER 8 8 LAZARUS Bauer T VISIT PSC 15 MINUTES HOSPITAL GRACIE - 8 8 [facility] OUTPATIEN INC T EMERGENCY 09053 GRACIE 8 8 [facility] VISIT LOW/MODER SEVERITY HOSPITAL GRACIE - 8 8 [facility] OUTPATIEN INC T HOSPITAL GRACIE - 8 8 [facility] OUTPATIEN INC T OFFICE 26344 Edgar LUTHER 8 8 LAZARUS Bauer T VISIT PSC 10 MINUTES
--- OUTSIDE RECORDS SUMMARY | 2016-10-06 12:06 | External Medical Summary Rpt ---
Author Author CLARA Levy, [employer] Organization [employer] Address Unknown Phone Unavailable
--- OUTSIDE RECORDS SUMMARY | 2016-10-06 12:06 | External Medical Summary Rpt ---
Demographics Preferred Language Serbian Marital Status Unknown Oriental Orthodox Affiliation Unknown Race Unknown Ethnic Group Unknown Author Author , MINA ELIZABETH Address Unknown Phone Immunization Unable to retrieve immunization data due to connection failure with Immunization Registry. Please try again later.
--- OUTSIDE RECORDS SUMMARY | 2016-10-06 12:06 | External Medical Summary Rpt ---
Demographics Preferred Language Maori Marital Status Unknown Bahai Affiliation Unknown Race Unknown Ethnic Group Unknown Author Author , MINA ELIZABETH Address Unknown Phone Immunization Unable to retrieve immunization data due to connection failure with Immunization Registry. Please try again later.
== END ==
LOC: ER 10:37
DX: M54.5 Low back pain (principal); Z72.0 Tobacco use

== ENCOUNTER 2016-12-01 13:48 | Emergency (ER) | payer SELFPAY ==
[~2016-12-01] VITALS: Ht 177.8 cm; Wt 79.4 kg
[2016-12-01 14:02] LABS: URINE BILIRUBIN - DIPSTICK 1+ (NEG)
[2016-12-01 14:03] LABS: URINE BLOOD 3+ (NEG)
[2016-12-01] MEDS ORDERED: BACTRIM DS 8001 TA1 PO (14:29)
--- NOTE | 2016-12-01 14:29 | Urgent Treatment Center Report ---
History of Present Issue Date/Time Seen by Provider 12/01/16 1419 Visit Reason Pt arrived:Walked Presenting Problem:VOMITING, DIARRHEA, BACK PAIIN AND LEFT SIDE PAIN X 3 DAYS. URINE IS FOUL SMELLING Location if Accident: Onset of symptoms date/time:/ or onset unknown for:MEDICAL HX UNKNOWN Have you (or family members/close friends) recently traveled outside the [place]? N If Yes, where/when: Have you had exposure to infectious disease within the past month? TB? Other? Specify: Patient state that she has been having burning when she urinates and urine has foul odor. States that she has been having pain in her left side and feeling of urgency and like she has to urinated frequently and then when she urinates only small amounts at a time also had a couple eppisodes of vomiting and dirrhea but none today ALLERGIES Coded Allergies: Penicillins (10/06/16) aspirin (10/06/16) codeine (10/06/16) terbutaline (10/06/16) History Medical History General Angina: Yes MA: Yes Hypertension? No Hyperlipidemia? No CHF? No COPD? No Asthma? Yes Hernia? No CVA? No Seizures? No Diabetes? No UTI? Yes Stones? No GB Disease: No Hepatitis? No Cataracts? No Glaucoma? No MRSA? No TB? No Cancer? No Immunization HX DT/Tetanus 1-4 YRS Flu THISFLUSEA Pneumonia REFUSES Surgical Hx Previous Surgery?Y D & C Tubal Ligation EXP.LAP ORAL EXTRACTION Family History Family HX Diabetes Yes CAD Yes Hypertension Yes Hyperlipidemia Yes Cancer Yes TB No Social History Smoking Hx Smoker: Current Every Day Smoker Tobacco: Yes Type Cigarettes Packs/day 1 1/2 - 2 Packs Alcohol Alcohol: No Review of Systems All Other Systems Reviewed and Negative Gastrointestinal diarrhea, nausea Genitourinary dysuria, frequency, hesitancy, hematuria, pain. denies: discharge, abnormal vaginal bleeding, vaginal discharge. Physical Exam Vital Signs Vital Signs Date Time Temp Pulse Resp B/P Pulse O2 O2 Flow FiO2 Ox Delivery Rate 12/01 1353 98.7 120 18 154/72 98 General Appearance normal appearance, WD/WN, no apparent distress Respiratory Status Yes: trachea midline, chest symmetrical, non tender chest. No: respiratory distress. Cardiovascular normal exam, regular rate/rhythm, no peripheral edema, no gallop Gastrointestinal normal bowel sounds, normal exam, no guarding, no rebound Back normal inspection, no CVA tenderness, no vertebral tenderness Neurologic alert, director clinical applications II-XII nml as tested, normal exam, no motor/sensory deficits, oriented x 3 Medical Decision Making LABS/Meds/Orders Pt receiving controlled substance in ED? No Results/Orders Laboratory Tests 12/01/16 1401: Urine Color DARK YELLOW, Urine Appearance Cloudy, Urine pH 5.5, Ur Specific [place] 1.020, Urine Protein 1+ H, Urine Ketones MODERATE H, Urine Blood 3+ H , Urine Nitrate NEGATIVE, Urine Bilirubin 1+ H, Urine Urobilinogen 0.2, Ur Leukocyte Esterase TRACE H, Urine Glucose NEGATIVE Orders Procedure Date/time Status [facility] URINE DIPSTICK 12/01 1401 Complete Departure Departure Time of Disposition 1427 Disposition DC Home or Self Care(routine) Clinical Impression Primary Impression: UTI (urinary tract infection) Qualifiers: Urinary tract infection type: site unspecified Hematuria presence: with hematuria Qualified Code: N39.0 - Urinary tract infection, site not specified Condition STABLE Patient Instructions DI for Urinary Tract Infection (UTI), Urinary Tract Infection Additional Instructions Drink plenty of fluids Follow up with family doctor Return if needed Take medication as prescribed Discharge Counseling Counseled pt/family regarding diagnosis, test results, medications/RX, home care, follow up needs Prescriptions Current Visit Scripts SULFAMETHOXAZOLE W/TRIMETHOPRI (Bactrim Ds Tab) 1 TABLET PO BID #20 TAB at [id number]
--- NOTE | 2016-12-01 14:29 | [facility] Report ---
History of Present Issue Date/Time Seen by Provider 12/01/16 1419 Visit Reason Pt arrived:Walked Presenting Problem:VOMITING, DIARRHEA, BACK PAIIN AND LEFT SIDE PAIN X 3 DAYS. URINE IS FOUL SMELLING Location if Accident: Onset of symptoms date/time:/ or onset unknown for:MEDICAL HX UNKNOWN Have you (or family members/close friends) recently traveled outside the [place]? N If Yes, where/when: Have you had exposure to infectious disease within the past month? TB? Other? Specify: Patient state that she has been having burning when she urinates and urine has foul odor. States that she has been having pain in her left side and feeling of urgency and like she has to urinated frequently and then when she urinates only small amounts at a time also had a couple eppisodes of vomiting and dirrhea but none today ALLERGIES Coded Allergies: Penicillins (10/06/16) aspirin (10/06/16) codeine (10/06/16) terbutaline (10/06/16) History Medical History General Angina: Yes ME: Yes Hypertension? No Hyperlipidemia? No CHF? No COPD? No Asthma? Yes Hernia? No CVA? No Seizures? No Diabetes? No UTI? Yes Stones? No GB Disease: No Hepatitis? No Cataracts? No Glaucoma? No MRSA? No TB? No Cancer? No Immunization HX DT/Tetanus 1-4 YRS Flu THISFLUSEA Pneumonia REFUSES Surgical Hx Previous Surgery?Y D & C Tubal Ligation EXP.LAP ORAL EXTRACTION Family History Family HX Diabetes Yes CAD Yes Hypertension Yes Hyperlipidemia Yes Cancer Yes TB No Social History Smoking Hx Smoker: Current Every Day Smoker Tobacco: Yes Type Cigarettes Packs/day 1 1/2 - 2 Packs Alcohol Alcohol: No Review of Systems All Other Systems Reviewed and Negative Gastrointestinal diarrhea, nausea Genitourinary dysuria, frequency, hesitancy, hematuria, pain. denies: discharge, abnormal vaginal bleeding, vaginal discharge. Physical Exam Vital Signs Vital Signs Date Time Temp Pulse Resp B/P Pulse O2 O2 Flow FiO2 Ox Delivery Rate 12/01 1353 98.7 120 18 154/72 98 General Appearance normal appearance, WD/WN, no apparent distress Respiratory Status Yes: trachea midline, chest symmetrical, non tender chest. No: respiratory distress. 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 No Results/Orders Laboratory Tests 12/01/16 1401: Urine Color DARK YELLOW, Urine Appearance Cloudy, Urine pH 5.5, Ur Specific [place] 1.020, Urine Protein 1+ H, Urine Ketones MODERATE H, Urine Blood 3+ H , Urine Nitrate NEGATIVE, Urine Bilirubin 1+ H, Urine Urobilinogen 0.2, Ur Leukocyte Esterase TRACE H, Urine Glucose NEGATIVE Orders Procedure Date/time Status [facility] URINE DIPSTICK 12/01 1401 Complete Departure Departure Time of Disposition 1427 Disposition DC Home or Self Care(routine) Clinical Impression Primary Impression: UTI (urinary tract infection) Qualifiers: Urinary tract infection type: site unspecified Hematuria presence: with hematuria Qualified Code: N39.0 - Urinary tract infection, site not specified Condition STABLE Patient Instructions DI for Urinary Tract Infection (UTI), Urinary Tract Infection Additional Instructions Drink plenty of fluids Follow up with family doctor Return if needed Take medication as prescribed Discharge Counseling Counseled pt/family regarding diagnosis, test results, medications/RX, home care, follow up needs Prescriptions Current Visit Scripts SULFAMETHOXAZOLE W/TRIMETHOPRI (Bactrim Ds Tab) 1 TABLET PO BID #20 TAB at 1475
[2016-12-01 14:30] VITALS: BP 154/72
== END 2016-12-01 14:31 | disposition home or self-care (01) ==
LOC: UTC 13:48
PROVIDERS: Nurse Practitioner
DX: N39.0 Urinary tract infection, site not specified (principal); Z88.0 Allergy status to penicillin; Z88.6 Allergy status to analgesic agent; F17.210 Nicotine dependence, cigarettes, uncomplicated; J45.909 Unspecified asthma, uncomplicated